=== PATIENT | male | born 1950 | race Caucasian/White ===

== ENCOUNTER 2018-10-19 15:51 | Inpatient (IN) | payer MEDICARE, MEDICAID ==
[~2018-10-19] VITALS: Ht 167.6 cm; Wt 132.6 kg
[~2018-10-19 15:51] MED LIST: CALC667C4 PO
[2018-10-19] MEDS ORDERED: ONDANSETRON HCL 4MG/2ML INJ IV STA (16:19)
[2018-10-19] MEDS ORDERED: DILTIAZEM HCL 30MG TABLET PO ONE (16:30)
[2018-10-19] MEDS ORDERED: ASPIRIN 81MG TABLET PO ONE (16:30)
[2018-10-19] MEDS ORDERED: DILTIAZEM HCL 5MG/ML 5ML VIAL IV ONE (16:30)
[2018-10-19 16:54] LABS: BASOPHILS % 1.4 % (0.0-2.0); EOSINOPHILS % 3.5 % (0.0-5.0); HEMATOCRIT. 37.5 % (42.0-52.0); HEMOGLOBIN. 12.2 g/dL (14.0-18.0); MEAN CORPUSCULAR HEMOGLOBIN 33.9 pg (28.0-32.0); MEAN PLATELET VOLUME 8.8 fl (7.4-10.4); MONOCYTES % 11.2 % (2.0-8.0); NEUTROPHILS % 62.9 % (40.0-76.0); PLATELET 322 x1000/uL (130-400); RED BLOOD CELL COUNT 3.61 mill/uL (4.7-6.1); RED CELL DISTRIBUTION WIDTH 15.2 % (11.6-14.6)
[2018-10-19 17:01] LABS: INR 1.2; PARTIAL THROMBOPLASTIN TIME 29.2 sec (23.4-31.0)
[2018-10-19 17:56] LABS: CHLORIDE 97 mEq/L (98-107)
[2018-10-19 18:00] LABS: ETHANOL BLOOD < 10 mg/dL
[2018-10-19 21:31] VITALS: BP 128/94
[2018-10-19] MEDS ORDERED: LORAZEPAM 1MG TABLET PO PRN (22:15)
[2018-10-19] MEDS ORDERED: NON FORMULARY PATIENT HOME MED XX SCH (22:15)
[2018-10-19] MEDS ORDERED: ONDANSETRON HCL 4MG/2ML INJ IV PRN (22:15)
[2018-10-19] MEDS ORDERED: MORPHINE SULFATE 2 MG/ML CPJ (NOT FOR IM USE) IV PRN (22:15)
[2018-10-19] MEDS: DILTIAZEM HCL 60MG TABLET PO SCH (22:21)
[2018-10-19 22:26] VITALS: BP 128/94
[2018-10-19] MEDS ORDERED: POLYETHYLENE GLYCOL 3350 (17GM) 1 DOSE PACK PO SCH (23:15)
[2018-10-19] MEDS: FAMOTIDINE 20MG TABLET PO SCH (23:25)
[2018-10-19] MEDS ORDERED: MAGNESIUM/ALUMINUM HYDROXIDE/SIMETHICONE 30ML UDC PO NR (23:30)
[2018-10-20 00:37] VITALS: BP 115/83
[2018-10-20] MEDS ORDERED: FOLI0.8T42 MT (03:01)
[2018-10-20] MEDS ORDERED: LORA1TAB PO (03:01)
[2018-10-20] MEDS ORDERED: NAPR-681 MT (03:01)
[2018-10-20] MEDS ORDERED: APIX2.5T MT (03:01)
[2018-10-20] MEDS ORDERED: DILT30TA38 PO (03:01)
[2018-10-20] MEDS ORDERED: SEVE800T8 MT (03:01)
[2018-10-20 03:49] VITALS: BP 118/62
[2018-10-20 05:56] LABS: BASOPHILS % 1.3 % (0.0-2.0); EOSINOPHILS % 4.2 % (0.0-5.0); HEMATOCRIT. 34.9 % (42.0-52.0); HEMOGLOBIN. 11.7 g/dL (14.0-18.0); LYMPHOCYTES % 20.5 % (20.0-50.0); MEAN CORPUSCULAR HEMOGLOBIN 34.6 pg (28.0-32.0); MEAN CORPUSCULAR VOLUME 103.6 fL (80.0-94.0); MEAN PLATELET VOLUME 8.3 fl (7.4-10.4); MONOCYTES % 9.6 % (2.0-8.0); NEUTROPHILS % 64.4 % (40.0-76.0); PLATELET 292 x1000/uL (130-400); RED BLOOD CELL COUNT 3.37 mill/uL (4.7-6.1); RED CELL DISTRIBUTION WIDTH 15.5 % (11.6-14.6)
[2018-10-20] MEDS: DILTIAZEM HCL 60MG TABLET PO SCH ×3 (06:09→18:00)
[2018-10-20 07:20] LABS: CHLORIDE 98 mEq/L (98-107)
[2018-10-20 07:26] LABS: PHOSPHORUS 7.9 mg/dL (2.5-4.9)
[2018-10-20 08:00] VITALS: BP 129/95
[2018-10-20] MEDS ORDERED: METOPROLOL TARTRATE 50MG TABLET PO SCH (09:00)
[2018-10-20] MEDS ORDERED: FOLIC ACID/VITAMIN B COMP W-C TABLET PO SCH (09:00)
[2018-10-20] MEDS ORDERED: METOPROLOL TARTRATE 25MG TABLET PO SCH (09:00)
[2018-10-20] MEDS: FAMOTIDINE 20MG TABLET PO SCH (10:10)
[2018-10-20] MEDS: SEVELAMER CARBONATE 800 MG TABLET PO SCH ×3 (10:11→18:25)
[2018-10-20] MEDS: APIXABAN 2.5 MG TABLET PO SCH ×2 (10:15→18:25)
[2018-10-20 12:00] VITALS: BP 131/85
[2018-10-20] MEDS ORDERED: LACTULOSE 20G/30ML UDC PO NR (14:00)
[2018-10-20] MEDS ORDERED: NA PHOS,M-B/NA PHOS,DI-BA ENEMA 118ML PR NR (14:00)
[2018-10-20 16:23] VITALS: BP 99/59
[2018-10-20 20:32] VITALS: BP 100/62
== END 2018-10-20 20:15 | disposition home or self-care (01) | DRG 291 ==
LOC: ER 15:51 → 8WST 18:31 → EDBEDREQ 18:35 → EDBEDREQTM 18:35 → ENRESERV 19:52
PROVIDERS: ADMIT Internal Medicine; ATTEND Internal Medicine
PROC: 5A1D70Z Performance of Urinary Filtration, Intermittent, Less than 6 Hours Per Day (ICD-10-PCS; principal; 2018-10-20)
DX: I13.2 Hypertensive heart and chronic kidney disease with heart failure and with stage 5 chronic kidney disease, or end stage renal disease (principal); N18.6 End stage renal disease; E44.0 Moderate protein-calorie malnutrition; E87.1 Hypo-osmolality and hyponatremia; Z68.42 Body mass index [BMI] 45.0-49.9, adult; E11.22 Type 2 diabetes mellitus with diabetic chronic kidney disease; K59.09 Other constipation; D64.9 Anemia, unspecified; F32.9 Major depressive disorder, single episode, unspecified; I35.0 Nonrheumatic aortic (valve) stenosis; F41.9 Anxiety disorder, unspecified; E66.01 Morbid (severe) obesity due to excess calories; I50.9 Heart failure, unspecified; E87.8 Other disorders of electrolyte and fluid balance, not elsewhere classified; G89.29 Other chronic pain; I48.2 Chronic atrial fibrillation; M19.90 Unspecified osteoarthritis, unspecified site; Z79.01 Long term (current) use of anticoagulants; Z90.81 Acquired absence of spleen; Z99.2 Dependence on renal dialysis; Z91.15 Patient's noncompliance with renal dialysis; Z79.899 Other long term (current) drug therapy; Z71.3 Dietary counseling and surveillance
CPT/HCPCS: 36415; 71045; 80320; 83605; 83880; 84100; 84484; 93005; 93306; 96374; 96375; 99285; J2405; J3490; G0480

== ENCOUNTER 2018-11-07 09:49 | Inpatient (IN) | payer MEDICARE, MEDICAID ==
[~2018-11-07] VITALS: Ht 165.1 cm; Wt 124.7 kg
[~2018-11-07 09:49] MED LIST changes: +APIX2.5T MT; +DILT30TA38 PO; +FOLI0.8T42 MT; +LORA1TAB PO; +SEVE800T8 MT
[2018-11-07] MEDS ORDERED: MORPHINE SULFATE 4 MG/ML CPJ (NOT FOR IM USE) IV STA (10:32)
[2018-11-07] MEDS ORDERED: SODIUM CHLORIDE 0.9% 1,000 ML IV ONE (10:32)
[2018-11-07] MEDS ORDERED: ONDANSETRON HCL 4MG/2ML INJ IV STA (10:32)
[2018-11-07 11:07] LABS: BASOPHILS % 1.2 % (0.0-2.0); EOSINOPHILS % 3.3 % (0.0-5.0); HEMATOCRIT. 38.4 % (42.0-52.0); HEMOGLOBIN. 12.7 g/dL (14.0-18.0); LYMPHOCYTES % 19.8 % (20.0-50.0); MEAN CORPUSCULAR HEMOGLOBIN 33.7 pg (28.0-32.0); MEAN CORPUSCULAR VOLUME 101.9 fL (80.0-94.0); MEAN PLATELET VOLUME 8.1 fl (7.4-10.4); MONOCYTES % 10.4 % (2.0-8.0); NEUTROPHILS % 65.3 % (40.0-76.0); PLATELET 363 x1000/uL (130-400); RED BLOOD CELL COUNT 3.77 mill/uL (4.7-6.1); RED CELL DISTRIBUTION WIDTH 14.5 % (11.6-14.6)
[2018-11-07 11:15] LABS: CHLORIDE 95 mEq/L (98-107)
[2018-11-07 11:17] LABS: PARTIAL THROMBOPLASTIN TIME 28.9 sec (23.4-31.0); PROTHROMBIN TIME 10.1 sec (9.6-11.0)
[2018-11-07] MEDS ORDERED: ACETAMINOPHEN 650MG/20.3ML UDC GT PRN (14:00)
[2018-11-07] MEDS ORDERED: CLONIDINE 0.1MG TABLET PO PRN (14:00)
[2018-11-07] MEDS ORDERED: ONDANSETRON HCL 4MG/2ML INJ IV PRN (14:00)
[2018-11-07] MEDS ORDERED: DOCUSATE SODIUM 100MG CAPSULE PO PRN (14:00)
[2018-11-07] MEDS ORDERED: HYDROCODONE/ACETAMINOPHEN 10/325MG TABLET PO PRN (14:00)
[2018-11-07] MEDS ORDERED: ASPIRIN 325MG EC TABLET PO ONE (14:00)
[2018-11-07] MEDS ORDERED: DIPHENHYDRAMINE 50MG/ML VIAL IV PRN (14:00)
[2018-11-07] MEDS ORDERED: MAGNESIUM/ALUMINUM HYDROXIDE/SIMETHICONE 30ML UDC PO PRN (14:00)
[2018-11-07] MEDS ORDERED: HYDROCODONE/ACETAMINOPHEN 5/325MG TABLET PO PRN (14:00)
[2018-11-07] MEDS ORDERED: IPRATROPIUM/ALBUTEROL 0.5-3(2.5)MG/3ML NEB INH PRN (14:00)
[2018-11-07] MEDS ORDERED: ACETAMINOPHEN 325MG TABLET PO PRN (14:00)
[2018-11-07] MEDS ORDERED: ACETAMINOPHEN 650MG SUPP PR PRN (14:00)
[2018-11-07] MEDS ORDERED: METO-539 PO (17:41)
[2018-11-07] MEDS ORDERED: FAMO20TA8 PO (17:41)
[2018-11-07] MEDS ORDERED: MIDO10TA PO (17:41)
[2018-11-07 17:42] VITALS: BP 118/81
[2018-11-07 17:45] VITALS: BP 118/81
[2018-11-07 20:00] VITALS: BP 97/67
[2018-11-07] MEDS ORDERED: ENOXAPARIN 40MG/0.4ML SYR SUBCUT SCH (20:00)
[2018-11-07 20:31] LABS: CREATINE KINASE MB FRACTION 1.7 ng/mL (0.5-3.6)
[2018-11-07] MEDS ORDERED: NA PHOS,M-B/NA PHOS,DI-BA ENEMA 118ML PR PRN (21:00)
[2018-11-07] MEDS: SODIUM CHLORIDE 0.9% INJ 3ML FLUSH IVF SCH (21:30)
[2018-11-08] VITALS: BP 98/58
[2018-11-08 00:47] LABS: CREATINE KINASE MB FRACTION 1.4 ng/mL (0.5-3.6)
[2018-11-08 01:43] VITALS: BP 111/64
[2018-11-08 04:00] VITALS: BP 109/60
[2018-11-08] MEDS: SODIUM CHLORIDE 0.9% INJ 3ML FLUSH IVF SCH ×2 (06:00→14:00)
[2018-11-08 08:00] VITALS: BP 120/72
[2018-11-08 08:19] LABS: BASOPHILS % 1.3 % (0.0-2.0); EOSINOPHILS % 2.9 % (0.0-5.0); LYMPHOCYTES % 22.9 % (20.0-50.0); MEAN CORPUSCULAR HEMOGLOBIN 34.5 pg (28.0-32.0); MEAN CORPUSCULAR VOLUME 103.4 fL (80.0-94.0); MEAN PLATELET VOLUME 8.5 fl (7.4-10.4); MONOCYTES % 13.8 % (2.0-8.0); NEUTROPHILS % 59.1 % (40.0-76.0); PLATELET 377 x1000/uL (130-400); RED BLOOD CELL COUNT 3.77 mill/uL (4.7-6.1); RED CELL DISTRIBUTION WIDTH 14.9 % (11.6-14.6)
[2018-11-08 08:51] LABS: CHLORIDE 105 mEq/L (98-107)
[2018-11-08 09:00] LABS: PHOSPHORUS 4.8 mg/dL (2.5-4.9)
[2018-11-08] MEDS ORDERED: MAGNESIUM CITRATE 300ML SOLUTION PO NR (09:45)
[2018-11-08 12:00] VITALS: BP 124/58
[2018-11-08] MEDS ORDERED: LACTULOSE 20G/30ML UDC PO SCH (13:00)
[2018-11-08] MEDS: METOCLOPRAMIDE HCL 10MG/2ML VIAL IV SCH ×2 (13:22→18:00)
[2018-11-08] MEDS: SEVELAMER CARBONATE 800 MG TABLET PO SCH ×2 (13:23→18:10)
[2018-11-08 16:00] VITALS: BP 105/59
== END 2018-11-08 18:40 | disposition home or self-care (01) | DRG 308 ==
LOC: ER 10:08 → EDBEDREQ 14:15 → ENRESERV 14:50 → 7WST 17:51
PROVIDERS: ADMIT Family Medicine; ATTEND Family Medicine
PROC: 5A1D70Z Performance of Urinary Filtration, Intermittent, Less than 6 Hours Per Day (ICD-10-PCS; principal; 2018-11-07)
DX: I48.91 Unspecified atrial fibrillation (principal); N18.6 End stage renal disease; I13.2 Hypertensive heart and chronic kidney disease with heart failure and with stage 5 chronic kidney disease, or end stage renal disease; Z68.42 Body mass index [BMI] 45.0-49.9, adult; K59.00 Constipation, unspecified; R10.9 Unspecified abdominal pain; F41.9 Anxiety disorder, unspecified; F32.9 Major depressive disorder, single episode, unspecified; E66.9 Obesity, unspecified; I50.9 Heart failure, unspecified; M19.90 Unspecified osteoarthritis, unspecified site; N40.0 Benign prostatic hyperplasia without lower urinary tract symptoms; E83.39 Other disorders of phosphorus metabolism; D64.9 Anemia, unspecified; N27.1 Small kidney, bilateral; K59.09 Other constipation; E11.22 Type 2 diabetes mellitus with diabetic chronic kidney disease; G89.29 Other chronic pain; K74.60 Unspecified cirrhosis of liver; K57.30 Diverticulosis of large intestine without perforation or abscess without bleeding; K80.20 Calculus of gallbladder without cholecystitis without obstruction; Z90.81 Acquired absence of spleen; Z99.2 Dependence on renal dialysis
CPT/HCPCS: 36415; 71045; 74176; 82270; 82550; 82553; 83735; 83880; 84100; 84484; 93005; 96374; 99285; J1650; J2270; J2405; J2765; J7030

== ENCOUNTER 2019-01-07 11:59 | Emergency (ER) | payer MEDICARE, MEDICAID ==
[~2019-01-07] VITALS: Ht 170.2 cm; Wt 113.0 kg
[~2019-01-07 11:59] MED LIST changes: +FAMO20TA8 PO; +METO-539 PO; +MIDO10TA PO
[2019-01-07] MEDS ORDERED: HYDROCODONE/ACETAMINOPHEN 5/325MG TABLET PO STA (13:04)
[2019-01-07 14:47] LABS: BASOPHILS % 0.6 % (0.0-2.0); EOSINOPHILS % 2.9 % (0.0-5.0); HEMATOCRIT. 45.8 % (42.0-52.0); LYMPHOCYTES % 19.2 % (20.0-50.0); MEAN CORPUSCULAR VOLUME 103.7 fL (80.0-94.0); MEAN PLATELET VOLUME 8.5 fl (7.4-10.4); MONOCYTES % 10.2 % (2.0-8.0); NEUTROPHILS % 67.1 % (40.0-76.0); PLATELET 297 x1000/uL (130-400); RED BLOOD CELL COUNT 4.41 mill/uL (4.7-6.1)
[2019-01-07 14:48] LABS: CHLORIDE 95 mEq/L (98-107)
[2019-01-07 18:29] VITALS: BP 118/75
[2019-01-07] MEDS ORDERED: HYDROCODONE/ACETAMINOPHEN 5/325MG TABLET PO ONE (18:30)
== END 2019-01-07 19:00 | disposition home or self-care (01) ==
LOC: ER 11:59
DX: R51 Headache (principal); N18.6 End stage renal disease; R03.0 Elevated blood-pressure reading, without diagnosis of hypertension; H40.9 Unspecified glaucoma; Z99.2 Dependence on renal dialysis; H57.10 Ocular pain, unspecified eye
CPT/HCPCS: 36415; 99284

== ENCOUNTER 2019-04-18 03:12 | Inpatient (IN) | payer MEDICARE, MEDICAID ==
[~2019-04-18] VITALS: Ht 170.2 cm; Wt 121.6 kg
[2019-04-18 04:11] LABS: BASOPHILS % 0.4 % (0.0-2.0); EOSINOPHILS % 3.6 % (0.0-5.0); HEMATOCRIT. 37.2 % (42.0-52.0); HEMOGLOBIN. 12.5 g/dL (14.0-18.0); LYMPHOCYTES % 28.7 % (20.0-50.0); MEAN CORPUSCULAR HEMOGLOBIN 35.8 pg (28.0-32.0); MEAN CORPUSCULAR VOLUME 106.6 fL (80.0-94.0); MEAN PLATELET VOLUME 8.4 fl (7.4-10.4); NEUTROPHILS % 54.3 % (40.0-76.0); PLATELET 243 x1000/uL (130-400); RED BLOOD CELL COUNT 3.49 mill/uL (4.7-6.1); RED CELL DISTRIBUTION WIDTH 15.3 % (11.6-14.6)
[2019-04-18 04:16] LABS: PARTIAL THROMBOPLASTIN TIME 30.6 sec (23.4-31.0); PROTHROMBIN TIME 10.5 sec (9.6-11.0)
[2019-04-18 04:25] LABS: CHLORIDE 102 mEq/L (98-107)
[2019-04-18] MEDS ORDERED: MORPHINE SULFATE 2 MG/ML CPJ (NOT FOR IM USE) IV ONE (06:30)
[2019-04-18 06:48] LABS: HEMOGLOBIN 12.2 g/dL (14.0-18.0); MEAN CORPUSCULAR VOLUME 105.8 fL (80.0-94.0); PLATELET 245 x1000/uL (130-400)
[2019-04-18 07:14] LABS: PARTIAL THROMBOPLASTIN TIME 30.8 sec (23.4-31.0); PROTHROMBIN TIME 10.7 sec (9.6-11.0)
[2019-04-18] MEDS ORDERED: HUMAN PROTHROMBIN COMPLX (PCC) 500 UNITS VIAL IV ONE (07:15)
[2019-04-18] MEDS ORDERED: HUMAN PROTHROMBIN COMPLX IV ONE (07:15)
[2019-04-18] MEDS ORDERED: ONDANSETRON HCL 4MG/2ML INJ IV PRN (08:30)
[2019-04-18] MEDS: PANTOPRAZOLE SODIUM 40 MG/VIAL IV SCH ×3 (09:00→23:24)
[2019-04-18] MEDS ORDERED: MIDODRINE HCL 5MG TABLET PO SCH (12:00)
[2019-04-18] MEDS: METOPROLOL TARTRATE 50MG TABLET PO SCH (21:00)
[2019-04-18] MEDS ORDERED: DILTIAZEM HCL 60MG TABLET PO NR (22:00)
[2019-04-18 22:30] VITALS: BP 121/75
[2019-04-18] MEDS: POLYETHYLENE GLYCOL 3350 (17GM) 1 DOSE PACK PO SCH (22:30)
[2019-04-19 04:00] VITALS: BP 149/93
[2019-04-19 08:05] VITALS: BP 136/74
[2019-04-19] MEDS: FOLIC ACID/VITAMIN B COMP W-C TABLET PO SCH (09:00)
[2019-04-19] MEDS ORDERED: DILTIAZEM HCL 120MG CAPSULE CD 24HR PO SCH (09:00)
[2019-04-19] MEDS ORDERED: DIATR MEGLU/DIATRIZOATE SOLN 30ML PO SCH ×2 (09:30→13:45)
[2019-04-19] MEDS: METOPROLOL TARTRATE 50MG TABLET PO SCH ×2 (09:57→21:00)
[2019-04-19] MEDS ORDERED: INFLUENZA VIRUS VACCINE(AFLURIA) 0.5ML SYR IM ONE (10:00)
[2019-04-19] MEDS: POLYETHYLENE GLYCOL 3350 (17GM) 1 DOSE PACK PO SCH ×2 (10:00→17:00)
[2019-04-19 10:55] LABS: BASOPHILS % 2.2 % (0.0-2.0); EOSINOPHILS % 2.4 % (0.0-5.0); HEMATOCRIT. 30.1 % (42.0-52.0); HEMOGLOBIN. 10.3 g/dL (14.0-18.0); LYMPHOCYTES % 21.8 % (20.0-50.0); MEAN CORPUSCULAR HEMOGLOBIN 36.3 pg (28.0-32.0); MEAN CORPUSCULAR VOLUME 106.5 fL (80.0-94.0); MEAN PLATELET VOLUME 8.3 fl (7.4-10.4); MONOCYTES % 14.4 % (2.0-8.0); NEUTROPHILS % 59.2 % (40.0-76.0); PLATELET 222 x1000/uL (130-400); RED BLOOD CELL COUNT 2.83 mill/uL (4.7-6.1); RED CELL DISTRIBUTION WIDTH 15.3 % (11.6-14.6)
[2019-04-19 11:58] VITALS: BP 153/81
[2019-04-19] MEDS ORDERED: SORBITOL 70% SOLN 30ML PO SCH ×2 (16:00→20:00)
[2019-04-19 16:23] VITALS: BP 145/82
[2019-04-19] MEDS: ACETAMINOPHEN 325MG TABLET PO PRN (17:23)
[2019-04-19] MEDS: DILTIAZEM HCL 90MG TABLET PO SCH (18:00)
[2019-04-19] MEDS ORDERED: LORAZEPAM 2MG/ML CPJ IV PRN (19:45)
[2019-04-19 20:00] VITALS: BP 120/75
[2019-04-19] MEDS: PANTOPRAZOLE SODIUM 40 MG/VIAL IV SCH (21:00)
[2019-04-20] VITALS (57 sets, daily range): BP systolic 92–145; BP diastolic 38–99
[2019-04-20 00:04] LABS: TOTAL IRON BINDING CAPACITY 215 ug/dL (250-450)
[2019-04-20] MEDS: DILTIAZEM HCL 90MG TABLET PO SCH ×4 (06:00→19:10)
[2019-04-20] MEDS: PANTOPRAZOLE SODIUM 40 MG/VIAL IV SCH ×2 (09:00→21:15)
[2019-04-20] MEDS: POLYETHYLENE GLYCOL 3350 (17GM) 1 DOSE PACK PO SCH ×2 (09:00→16:55)
[2019-04-20] MEDS: FOLIC ACID/VITAMIN B COMP W-C TABLET PO SCH (09:00)
[2019-04-20] MEDS: METOPROLOL TARTRATE 50MG TABLET PO SCH ×2 (09:00→21:00)
[2019-04-20 09:06] LABS: BASOPHILS % 1.4 % (0.0-2.0); EOSINOPHILS % 2.6 % (0.0-5.0); HEMATOCRIT. 26.7 % (42.0-52.0); HEMOGLOBIN. 9.1 g/dL (14.0-18.0); LYMPHOCYTES % 32.9 % (20.0-50.0); MEAN CORPUSCULAR HEMOGLOBIN 36.5 pg (28.0-32.0); MEAN CORPUSCULAR VOLUME 107.5 fL (80.0-94.0); MEAN PLATELET VOLUME 8.4 fl (7.4-10.4); MONOCYTES % 12.4 % (2.0-8.0); NEUTROPHILS % 50.7 % (40.0-76.0); PLATELET 211 x1000/uL (130-400); RED BLOOD CELL COUNT 2.48 mill/uL (4.7-6.1); RED CELL DISTRIBUTION WIDTH 15.2 % (11.6-14.6)
[2019-04-20 09:23] LABS: PARTIAL THROMBOPLASTIN TIME 25.8 sec (23.4-31.0); PROTHROMBIN TIME 10.7 sec (9.6-11.0)
[2019-04-20 09:37] LABS: PHOSPHORUS 5.8 mg/dL (2.5-4.9)
[2019-04-20] MEDS ORDERED: LIDOCAINE HCL 1% 20ML VIAL (Pyxis) INJ ONE ×2 (10:36→11:37)
[2019-04-20 10:45] LABS: FOLIC ACID (FOLATE) SERUM > 20.00 ng/mL (>5.38); VITAMIN B12 SERUM > 2000.0 pg/mL (211-911)
[2019-04-20] MEDS ORDERED: PHENYLEPHRINE 40 MG in DEXT 5% WATER 496 ML IV PRN (11:00)
[2019-04-20] MEDS ORDERED: DIATR MEGLU/DIATRIZOATE SOLN 30ML PO SCH (12:30)
[2019-04-20 13:05] LABS: CARCINO EMBRYONIC ANTIGEN 2.9 ng/ml; FERRITIN 713 ng/mL (22-322)
[2019-04-20 13:16] LABS: HEPATITIS B SURFACE ANTIGEN NEGATIVE
[2019-04-20 13:43] LABS: HEPATITIS A AB IGM NEGATIVE (NEGATIVE)
[2019-04-20] MEDS ORDERED: IOHEXOL-300 100 ML BOTTLE ONE (22:30)
[2019-04-20 22:46] LABS: HEMOGLOBIN 8.6 g/dL (14.0-18.0); MEAN CORPUSCULAR HEMOGLOBIN 34.5 pg (28.0-32.0); PLATELET 162 x1000/uL (130-400); RED BLOOD CELL COUNT 2.51 mill/uL (4.7-6.1)
[2019-04-20 22:50] LABS: HEMATOCRIT 25.2 % (42.0-52.0); MEAN CORPUSCULAR VOLUME 100.6 fL (80.0-94.0)
[2019-04-21] VITALS (79 sets, daily range): BP systolic 84–146; BP diastolic 40–111
[2019-04-21] MEDS: DILTIAZEM HCL 90MG TABLET PO SCH ×5 (00:52→23:55)
[2019-04-21 02:32] LABS: HEMATOCRIT 25.6 % (42.0-52.0); HEMOGLOBIN 8.8 g/dL (14.0-18.0); MEAN CORPUSCULAR HEMOGLOBIN 34.4 pg (28.0-32.0); MEAN CORPUSCULAR VOLUME 100.2 fL (80.0-94.0); PLATELET 171 x1000/uL (130-400); RED BLOOD CELL COUNT 2.56 mill/uL (4.7-6.1)
[2019-04-21 07:07] LABS: BASOPHILS % 1.1 % (0.0-2.0); EOSINOPHILS % 2.3 % (0.0-5.0); HEMOGLOBIN. 8.7 g/dL (14.0-18.0); MEAN CORPUSCULAR HEMOGLOBIN 35.2 pg (28.0-32.0); MEAN CORPUSCULAR VOLUME 100.9 fL (80.0-94.0); MEAN PLATELET VOLUME 8.4 fl (7.4-10.4); MONOCYTES % 12.8 % (2.0-8.0); NEUTROPHILS % 60.8 % (40.0-76.0); PLATELET 173 x1000/uL (130-400); RED BLOOD CELL COUNT 2.48 mill/uL (4.7-6.1); RED CELL DISTRIBUTION WIDTH 18.9 % (11.6-14.6)
[2019-04-21] MEDS: PANTOPRAZOLE SODIUM 40 MG/VIAL IV SCH ×2 (08:20→23:10)
[2019-04-21] MEDS: FOLIC ACID/VITAMIN B COMP W-C TABLET PO SCH (08:20)
[2019-04-21] MEDS: POLYETHYLENE GLYCOL 3350 (17GM) 1 DOSE PACK PO SCH ×2 (08:20→16:59)
[2019-04-21] MEDS: METOPROLOL TARTRATE 50MG TABLET PO SCH ×2 (09:00→21:00)
[2019-04-21 11:56] LABS: HEMATOCRIT 25.6 % (42.0-52.0); HEMOGLOBIN 8.7 g/dL (14.0-18.0); MEAN CORPUSCULAR HEMOGLOBIN 34.5 pg (28.0-32.0); MEAN CORPUSCULAR VOLUME 101.3 fL (80.0-94.0); PLATELET 171 x1000/uL (130-400); RED BLOOD CELL COUNT 2.52 mill/uL (4.7-6.1); RED CELL DISTRIBUTION WIDTH 18.9 % (11.6-14.6)
[2019-04-21 16:24] LABS: HEMATOCRIT 25.3 % (42.0-52.0); HEMOGLOBIN 8.6 g/dL (14.0-18.0); MEAN CORPUSCULAR HEMOGLOBIN 34.6 pg (28.0-32.0); MEAN CORPUSCULAR VOLUME 101.7 fL (80.0-94.0); PLATELET 174 x1000/uL (130-400); RED BLOOD CELL COUNT 2.49 mill/uL (4.7-6.1); RED CELL DISTRIBUTION WIDTH 18.9 % (11.6-14.6)
[2019-04-21] MEDS ORDERED: SORBITOL 70% SOLN 30ML PO NR (21:28)
[2019-04-21] MEDS: LORAZEPAM 1MG TABLET PO PRN (23:07)
[2019-04-21] MEDS: METOCLOPRAMIDE HCL 10MG/2ML VIAL IV SCH (23:49)
[2019-04-22] VITALS (30 sets, daily range): BP systolic 93–149; BP diastolic 37–96
[2019-04-22] MEDS ORDERED: SORBITOL 70% SOLN 30ML PO NR (02:00)
[2019-04-22 05:20] LABS: HEMOGLOBIN. 8.5 g/dL (14.0-18.0); LYMPHOCYTES % 17.5 % (20.0-50.0); MEAN CORPUSCULAR HEMOGLOBIN 34.6 pg (28.0-32.0); MEAN CORPUSCULAR VOLUME 101.8 fL (80.0-94.0); MEAN PLATELET VOLUME 8.3 fl (7.4-10.4); MONOCYTES % 11.6 % (2.0-8.0); NEUTROPHILS % 65.9 % (40.0-76.0); PLATELET 192 x1000/uL (130-400); RED BLOOD CELL COUNT 2.46 mill/uL (4.7-6.1); RED CELL DISTRIBUTION WIDTH 18.8 % (11.6-14.6)
[2019-04-22] MEDS: DILTIAZEM HCL 90MG TABLET PO SCH ×3 (07:18→18:35)
[2019-04-22] MEDS: METOCLOPRAMIDE HCL 10MG/2ML VIAL IV SCH ×4 (07:18→18:35)
[2019-04-22] MEDS: POLYETHYLENE GLYCOL 3350 (17GM) 1 DOSE PACK PO SCH ×2 (09:00→17:00)
[2019-04-22] MEDS ORDERED: SORBITOL 70% SOLN 30ML PO SCH (09:00)
[2019-04-22] MEDS: FOLIC ACID/VITAMIN B COMP W-C TABLET PO SCH (09:00)
[2019-04-22] MEDS: METOPROLOL TARTRATE 50MG TABLET PO SCH ×2 (10:03→20:32)
[2019-04-22] MEDS: PANTOPRAZOLE SODIUM 40 MG/VIAL IV SCH ×2 (10:03→20:29)
[2019-04-22] MEDS ORDERED: BACITRACIN 15GM TUBE TOP ONE (12:22)
[2019-04-22] MEDS ORDERED: FENTANYL CITRATE/PF 50MCG/ML 2ML VIAL ONE (14:57)
[2019-04-22] MEDS ORDERED: MIDAZOLAM HCL 5 MG/5 ML VIAL ONE (14:57)
[2019-04-22] MEDS ORDERED: MIDAZOLAM HCL 5 MG/5 ML VIAL IV PRN (15:16)
[2019-04-22] MEDS ORDERED: FENTANYL CITRATE/PF 50MCG/ML 2ML VIAL IV PRN (15:25)
[2019-04-22] MEDS: LORAZEPAM 1MG TABLET PO PRN (23:58)
[2019-04-23] VITALS (7 sets, daily range): BP systolic 76–149; BP diastolic 45–78
[2019-04-23] MEDS: DILTIAZEM HCL 90MG TABLET PO SCH ×4 (00:02→18:00)
[2019-04-23] MEDS: METOCLOPRAMIDE HCL 10MG/2ML VIAL IV SCH ×3 (00:02→12:50)
[2019-04-23] MEDS: ACETAMINOPHEN 325MG TABLET PO PRN (01:47)
[2019-04-23] MEDS: METOPROLOL TARTRATE 50MG TABLET PO SCH (09:00)
[2019-04-23 09:29] LABS: BASOPHILS % 0.8 % (0.0-2.0); EOSINOPHILS % 4.6 % (0.0-5.0); HEMOGLOBIN. 8.3 g/dL (14.0-18.0); MEAN CORPUSCULAR HEMOGLOBIN 34.1 pg (28.0-32.0); MEAN PLATELET VOLUME 8.4 fl (7.4-10.4); MONOCYTES % 11.8 % (2.0-8.0); NEUTROPHILS % 64.8 % (40.0-76.0); PLATELET 196 x1000/uL (130-400); RED BLOOD CELL COUNT 2.43 mill/uL (4.7-6.1); RED CELL DISTRIBUTION WIDTH 18.7 % (11.6-14.6)
[2019-04-23 09:36] LABS: CHLORIDE 109 mEq/L (98-107)
[2019-04-23 09:47] LABS: PHOSPHORUS 6.9 mg/dL (2.5-4.9)
[2019-04-23] MEDS: POLYETHYLENE GLYCOL 3350 (17GM) 1 DOSE PACK PO SCH ×2 (10:12→10:19)
[2019-04-23] MEDS: FOLIC ACID/VITAMIN B COMP W-C TABLET PO SCH (10:12)
[2019-04-23] MEDS: PANTOPRAZOLE SODIUM 40 MG/VIAL IV SCH (10:12)
[2019-04-23] MEDS: SEVELAMER CARBONATE 800 MG TABLET PO SCH ×2 (12:50→18:43)
[2019-04-23] MEDS ORDERED: METOCLOPRAMIDE HCL 10MG/2ML VIAL IV SCH (18:00)
== END 2019-04-23 20:06 | disposition home or self-care (01) | DRG 377 ==
LOC: ER 05:21 → 6WST 07:58 → EDBEDREQ 08:00 → EDBEDREQSVC 08:00 → CANRESERV 20:03 → ENRESERV 20:03 → MICUSO 04-20 10:57 → 6WST 04-22 23:00
PROVIDERS: ADMIT Internal Medicine; ATTEND Internal Medicine
PROC: 5A1D70Z Performance of Urinary Filtration, Intermittent, Less than 6 Hours Per Day (ICD-10-PCS; 2019-04-18)
PROC: 30233N1 Transfusion of Nonautologous Red Blood Cells into Peripheral Vein, Percutaneous Approach (ICD-10-PCS; principal; 2019-04-20)
PROC: 05HY33Z Insertion of Infusion Device into Upper Vein, Percutaneous Approach (ICD-10-PCS; 2019-04-20)
PROC: B54MZZA Ultrasonography of Right Upper Extremity Veins, Guidance (ICD-10-PCS; 2019-04-20)
PROC: 5A1D70Z Performance of Urinary Filtration, Intermittent, Less than 6 Hours Per Day (ICD-10-PCS; 2019-04-20)
PROC: 0DBK8ZZ Excision of Ascending Colon, Via Natural or Artificial Opening Endoscopic (ICD-10-PCS; 2019-04-22)
PROC: 5A1D70Z Performance of Urinary Filtration, Intermittent, Less than 6 Hours Per Day (ICD-10-PCS; 2019-04-23)
DX: K57.31 Diverticulosis of large intestine without perforation or abscess with bleeding (principal); N18.6 End stage renal disease; R57.1 Hypovolemic shock; D62 Acute posthemorrhagic anemia; E44.1 Mild protein-calorie malnutrition; I13.2 Hypertensive heart and chronic kidney disease with heart failure and with stage 5 chronic kidney disease, or end stage renal disease; I48.20 Chronic atrial fibrillation, unspecified; Z68.42 Body mass index [BMI] 45.0-49.9, adult; N25.81 Secondary hyperparathyroidism of renal origin; E11.22 Type 2 diabetes mellitus with diabetic chronic kidney disease; E66.01 Morbid (severe) obesity due to excess calories; E87.5 Hyperkalemia; E83.39 Other disorders of phosphorus metabolism; I50.9 Heart failure, unspecified; K21.9 Gastro-esophageal reflux disease without esophagitis; D63.1 Anemia in chronic kidney disease; K44.9 Diaphragmatic hernia without obstruction or gangrene; N40.0 Benign prostatic hyperplasia without lower urinary tract symptoms; K59.09 Other constipation; G89.29 Other chronic pain; K63.5 Polyp of colon; K74.60 Unspecified cirrhosis of liver; F41.9 Anxiety disorder, unspecified; E11.42 Type 2 diabetes mellitus with diabetic polyneuropathy; M19.90 Unspecified osteoarthritis, unspecified site; Z60.2 Problems related to living alone; I35.0 Nonrheumatic aortic (valve) stenosis; Z71.89 Other specified counseling; Z90.81 Acquired absence of spleen; Z79.01 Long term (current) use of anticoagulants; Z99.2 Dependence on renal dialysis; Z82.49 Family history of ischemic heart disease and other diseases of the circulatory system; Z83.3 Family history of diabetes mellitus
CPT/HCPCS: 36415; 71045; 74177; 76937; 78278; 80048; 80053; 80307; 82105; 82378; 82607; 82728; 82746; 83540; 83550; 83735; 83880; 84100; 84484; 85018; 85025; 85027; 86705; 86709; 86803; 86850; 86900; 86920; 87340; 88305; 93005; 93306; 93970; 99285; A9560; C1725; C9113; C9132; J2060; J2250; J2270; J2765; J3010; J3490; J7040; P9016; Q9963; Q9967

== ENCOUNTER 2019-06-08 04:02 | Emergency (ER) | payer MEDICARE, MEDICAID ==
[~2019-06-08] VITALS: Ht 170.2 cm; Wt 132.0 kg
[~2019-06-08 04:02] MED LIST changes: -APIX2.5T MT; -CALC667C4 PO
[2019-06-08] MEDS ORDERED: KETOROLAC 30MG/ML VIAL IV STA (06:34)
[2019-06-08 06:48] LABS: CHLORIDE 95 mEq/L (98-107)
[2019-06-08 06:57] LABS: BASOPHILS % 0.8 % (0.0-2.0); EOSINOPHILS % 4.4 % (0.0-5.0); HEMATOCRIT. 40.6 % (42.0-52.0); HEMOGLOBIN. 13.8 g/dL (14.0-18.0); LYMPHOCYTES % 25.9 % (20.0-50.0); MEAN CORPUSCULAR VOLUME 105.9 fL (80.0-94.0); MEAN PLATELET VOLUME 8.4 fl (7.4-10.4); MONOCYTES % 13.3 % (2.0-8.0); NEUTROPHILS % 55.6 % (40.0-76.0); PLATELET 290 x1000/uL (130-400); RED BLOOD CELL COUNT 3.83 mill/uL (4.7-6.1); RED CELL DISTRIBUTION WIDTH 15.9 % (11.6-14.6)
[2019-06-08 08:37] VITALS: BP 128/85
== END 2019-06-08 08:35 | disposition home or self-care (01) ==
LOC: ER 04:02
DX: M79.18 Myalgia, other site (principal); R07.89 Other chest pain; M79.605 Pain in left leg; M79.604 Pain in right leg; R10.30 Lower abdominal pain, unspecified; N18.6 End stage renal disease; Z99.2 Dependence on renal dialysis; I48.91 Unspecified atrial fibrillation; Z79.899 Other long term (current) drug therapy
CPT/HCPCS: 36415; 71045; 80053; 85025; 93005; 96374; 99285; J1885

== ENCOUNTER 2019-07-27 20:36 | Inpatient (IN) | payer MEDICARE, MEDICAID ==
[~2019-07-27] VITALS: Ht 167.6 cm; Wt 121.6 kg
[2019-07-27] MEDS ORDERED: SODIUM CHLORIDE 0.9% 1000ML BAG (SEPSIS BOLUS) IV ONE (21:00)
[2019-07-27] MEDS ORDERED: ATROPINE SULFATE 1MG/10ML SYR IV NR (21:30)
[2019-07-27] MEDS ORDERED: GLUCAGON,HUMAN RECOMBINANT 1MG/VIAL IV SCH (21:30)
[2019-07-27] MEDS ORDERED: GLUCAGON,HUMAN RECOMBINANT 1MG/VIAL IV ONE (21:30)
[2019-07-27 21:35] LABS: BASOPHILS % 1.1 % (0.0-2.0); EOSINOPHILS % 3.8 % (0.0-5.0); HEMOGLOBIN. 13.3 g/dL (14.0-18.0); MEAN CORPUSCULAR HEMOGLOBIN 34.7 pg (28.0-32.0); MEAN CORPUSCULAR VOLUME 104.7 fL (80.0-94.0); MEAN PLATELET VOLUME 8.3 fl (7.4-10.4); MONOCYTES % 11.7 % (2.0-8.0); NEUTROPHILS % 59.4 % (40.0-76.0); PLATELET 258 x1000/uL (130-400); RED BLOOD CELL COUNT 3.82 mill/uL (4.7-6.1); RED CELL DISTRIBUTION WIDTH 15.2 % (11.6-14.6)
[2019-07-27 21:38] LABS: PROTHROMBIN TIME 10.6 sec (9.6-11.0)
[2019-07-27 21:39] LABS: CHLORIDE 99 mEq/L (98-107)
[2019-07-27] MEDS ORDERED: GLUCAGON,HUMAN RECOMBINANT 1MG/VIAL IV NR ×2 (22:00→22:30)
[2019-07-27] MEDS ORDERED: DEXT 5% IV NR (22:15)
[2019-07-27] MEDS ORDERED: CALCIUM CHLORIDE 1GM/10ML SYR IV ONE (22:15)
[2019-07-27] MEDS ORDERED: GLUCAGON HUMAN RECOMBINANT IV NR (22:15)
[2019-07-27] MEDS ORDERED: SODIUM BICARBONATE 8.4% 1 MEQ/ML 50ML SYR IV ONE (22:15)
[2019-07-27] MEDS ORDERED: INSULIN REGULAR (HUMULIN R) 300UNITS/3ML IV ONE (22:15)
[2019-07-27] MEDS ORDERED: WATER IV NR (22:15)
[2019-07-27] MEDS ORDERED: DEXTROSE 50% WATER 50ML SYRINGE IV ONE (22:15)
[2019-07-28] MEDS ORDERED: DOPAMINE 400MG/250ML PREMIX 250 ML IV ONE (00:15)
[2019-07-28] MEDS ORDERED: HYDROCODONE/ACETAMINOPHEN 5/325MG TABLET PO PRN (11:45)
[2019-07-28] MEDS ORDERED: DIPHENHYDRAMINE 50MG/ML VIAL IV PRN (11:45)
[2019-07-28] MEDS ORDERED: MAGNESIUM/ALUMINUM HYDROXIDE/SIMETHICONE 30ML UDC PO PRN (11:45)
[2019-07-28] MEDS ORDERED: ONDANSETRON HCL 4MG/2ML INJ IV PRN (11:45)
[2019-07-28] MEDS ORDERED: GUAIFENESIN 200MG/10ML SUGAR FREE UDC PO PRN (11:45)
[2019-07-28] MEDS ORDERED: ACETAMINOPHEN 325MG TABLET PO PRN (11:45)
[2019-07-28] MEDS ORDERED: DOCUSATE SODIUM 100MG CAPSULE PO PRN (11:45)
[2019-07-28 16:00] VITALS: BP 144/92
[2019-07-28 17:33] VITALS: BP 144/92
[2019-07-28 18:00] VITALS: BP 130/84
[2019-07-28] MEDS: POLYETHYLENE GLYCOL 3350 (17GM) 1 DOSE PACK PO SCH (18:53)
[2019-07-28] MEDS: SEVELAMER CARBONATE 800 MG TABLET PO SCH (18:53)
[2019-07-28 20:51] VITALS: BP 139/73
[2019-07-29 00:10] VITALS: BP 125/76
[2019-07-29 04:00] VITALS: BP 133/83
[2019-07-29 06:40] LABS: BASOPHILS % 1.1 % (0.0-2.0); HEMOGLOBIN. 12.8 g/dL (14.0-18.0); LYMPHOCYTES % 16.8 % (20.0-50.0); MEAN CORPUSCULAR HEMOGLOBIN 34.9 pg (28.0-32.0); MEAN PLATELET VOLUME 7.8 fl (7.4-10.4); MONOCYTES % 14.9 % (2.0-8.0); NEUTROPHILS % 61.2 % (40.0-76.0); PLATELET 237 x1000/uL (130-400); RED BLOOD CELL COUNT 3.66 mill/uL (4.7-6.1); RED CELL DISTRIBUTION WIDTH 15.2 % (11.6-14.6)
[2019-07-29 06:51] LABS: CHLORIDE 103 mEq/L (98-107)
[2019-07-29 07:09] LABS: PHOSPHORUS 4.3 mg/dL (2.5-4.9)
[2019-07-29 08:25] VITALS: BP 136/76
[2019-07-29] MEDS: POLYETHYLENE GLYCOL 3350 (17GM) 1 DOSE PACK PO SCH (08:40)
[2019-07-29] MEDS: SEVELAMER CARBONATE 800 MG TABLET PO SCH (08:40)
[2019-07-29] MEDS ORDERED: FOLIC ACID/VITAMIN B COMP W-C TABLET PO SCH (09:00)
[2019-07-29 12:30] VITALS: BP 146/88
[2019-07-29 13:25] VITALS: BP 146/88
== END 2019-07-29 14:34 | disposition home or self-care (01) | DRG 917 ==
LOC: ER 20:36 → UNDOADMIN 07-28 00:10 → 6WST 07-28 00:10 → EDBEDREQDT 07-28 00:14 → EDBEDREQSVC 07-28 00:14 → EDBEDREQTM 07-28 00:14 → EDBEDREQ 07-28 00:14 → ENRESERV 07-28 07:28 → CANRESERV 07-28 07:28 → EDBEDREQSVC 07-28 11:26 → ENRESERV 07-28 15:22
PROVIDERS: ADMIT Hospitalist; ATTEND Hospitalist
PROC: 5A1D70Z Performance of Urinary Filtration, Intermittent, Less than 6 Hours Per Day (ICD-10-PCS; principal; 2019-07-28)
DX: T44.7X1A Poisoning by beta-adrenoreceptor antagonists, accidental (unintentional), initial encounter (principal); N18.6 End stage renal disease; I13.2 Hypertensive heart and chronic kidney disease with heart failure and with stage 5 chronic kidney disease, or end stage renal disease; Y92.89 Other specified places as the place of occurrence of the external cause; D63.1 Anemia in chronic kidney disease; E11.22 Type 2 diabetes mellitus with diabetic chronic kidney disease; E87.5 Hyperkalemia; I48.91 Unspecified atrial fibrillation; I50.9 Heart failure, unspecified; K59.09 Other constipation; K74.60 Unspecified cirrhosis of liver; E21.3 Hyperparathyroidism, unspecified; F32.9 Major depressive disorder, single episode, unspecified; K21.9 Gastro-esophageal reflux disease without esophagitis; K57.90 Diverticulosis of intestine, part unspecified, without perforation or abscess without bleeding; L29.9 Pruritus, unspecified; M19.90 Unspecified osteoarthritis, unspecified site; F41.9 Anxiety disorder, unspecified; I95.9 Hypotension, unspecified; E11.42 Type 2 diabetes mellitus with diabetic polyneuropathy; M71.22 Synovial cyst of popliteal space [Baker], left knee; Z79.899 Other long term (current) drug therapy; Z82.49 Family history of ischemic heart disease and other diseases of the circulatory system; Z83.3 Family history of diabetes mellitus; Z90.81 Acquired absence of spleen; Z99.2 Dependence on renal dialysis; Z87.01 Personal history of pneumonia (recurrent)
CPT/HCPCS: 36415; 71045; 80048; 80053; 83605; 83880; 84100; 84145; 84484; 85025; 93005; 93970; 99291; J0461; J1610; J1815; J3490; J7030; J7060

== ENCOUNTER 2020-11-20 03:57 | Inpatient (IN) | payer MEDICARE, MEDICAID ==
[~2020-11-20] VITALS: Ht 172.7 cm; Wt 115.2 kg
[2020-11-20] MEDS ORDERED: NOREPINEPHRINE 8MG/250ML PMX 250 ML IV STA (05:42)
[2020-11-20 05:52] LABS: BASOPHILS % 0.6 % (0.0-2.0); EOSINOPHILS % 2.9 % (0.0-5.0); HEMATOCRIT. 43.9 % (42.0-52.0); HEMOGLOBIN. 14.5 g/dL (14.0-18.0); MEAN CORPUSCULAR HEMOGLOBIN 35.1 pg (28.0-32.0); MONOCYTES % 8.3 % (2.0-8.0); NEUTROPHILS % 62.2 % (40.0-76.0); PLATELET 309 x1000/uL (130-400); RED BLOOD CELL COUNT 4.15 mill/uL (4.7-6.1); RED CELL DISTRIBUTION WIDTH 15.1 % (11.6-14.6)
[2020-11-20 05:55] LABS: CHLORIDE 96 mEq/L (98-107)
[2020-11-20] MEDS ORDERED: SODIUM CHLORIDE 0.9% 500 ML IV ONE (06:00)
[2020-11-20] MEDS ORDERED: GLUCAGON,HUMAN RECOMBINANT 1MG/VIAL IV ONE (06:30)
[2020-11-20] MEDS ORDERED: CALCIUM CHLORIDE 1GM/10ML SYR IV SCH ×2 (06:30)
[2020-11-20] MEDS ORDERED: SODIUM BICARBONATE 8.4% 1 MEQ/ML 50ML SYR IV SCH ×2 (06:30)
[2020-11-20 14:58] LABS: HEPATITIS B SURFACE ANTIGEN NEGATIVE
[2020-11-20 14:59] VITALS: BP 131/77
[2020-11-20] MEDS ORDERED: TRAM50TA3 PO (15:20)
[2020-11-20 15:28] LABS: HEPATITIS A AB IGM NEGATIVE (NEGATIVE)
[2020-11-20] MEDS ORDERED: *PATIENT'S OWN MEDICATION STORAGE XX SCH (15:45)
[2020-11-20 15:58] VITALS: BP 131/77
[2020-11-20] MEDS ORDERED: CLONIDINE 0.1MG TABLET PO PRN (16:30)
[2020-11-20] MEDS ORDERED: IPRATROPIUM/ALBUTEROL 0.5-3(2.5)MG/3ML NEB HHN PRN (16:30)
[2020-11-20] MEDS ORDERED: ACETAMINOPHEN 325MG TABLET PO PRN (16:30)
[2020-11-20] MEDS ORDERED: ONDANSETRON HCL 4MG/2ML INJ IV PRN (16:30)
[2020-11-20] MEDS ORDERED: MAGNESIUM/ALUMINUM HYDROXIDE/SIMETHICONE 30ML UDC PO PRN (16:30)
[2020-11-20] MEDS ORDERED: DOCUSATE SODIUM 100MG CAPSULE PO PRN (17:00)
[2020-11-20] MEDS: LORAZEPAM 1MG TABLET PO SCH (17:40)
[2020-11-20 18:00] VITALS: BP 149/82
[2020-11-20] MEDS ORDERED: TRAMADOL 50MG TABLET PO PRN (18:24)
[2020-11-20 20:00] VITALS: BP 120/84
[2020-11-20] MEDS ORDERED: FAMOTIDINE 20MG TABLET PO SCH (21:00)
[2020-11-20 22:00] VITALS: BP 114/77
[2020-11-21] VITALS (7 sets, daily range): BP systolic 100–152; BP diastolic 61–99
[2020-11-21] MEDS: ENOXAPARIN 40MG/0.4ML SYR SUBCUT SCH ×2 (00:26→20:12)
[2020-11-21] MEDS: HYDROCODONE/ACETAMINOPHEN 5/325MG TABLET PO PRN ×3 (02:55→17:13)
[2020-11-21 07:20] LABS: EOSINOPHILS % 2.9 % (0.0-5.0); HEMATOCRIT. 40.4 % (42.0-52.0); HEMOGLOBIN. 13.4 g/dL (14.0-18.0); LYMPHOCYTES % 16.8 % (20.0-50.0); MEAN CORPUSCULAR VOLUME 105.6 fL (80.0-94.0); MEAN PLATELET VOLUME 8.1 fl (7.4-10.4); NEUTROPHILS % 66.3 % (40.0-76.0); PLATELET 301 x1000/uL (130-400); RED BLOOD CELL COUNT 3.83 mill/uL (4.7-6.1); RED CELL DISTRIBUTION WIDTH 15.3 % (11.6-14.6)
[2020-11-21] MEDS ORDERED: LIDOCAINE HCL 1% 20ML VIAL (Pyxis) INJ ONE (07:39)
[2020-11-21 07:48] LABS: PHOSPHORUS 4.2 mg/dL (2.5-4.9)
[2020-11-21 07:50] LABS: T4 FREE 0.86 ng/dL (0.76-1.46)
[2020-11-21] MEDS: SEVELAMER CARBONATE 800 MG TABLET PO SCH ×3 (08:13→17:19)
[2020-11-21] MEDS: FOLIC ACID/VITAMIN B COMP W-C TABLET PO SCH (08:14)
[2020-11-21] MEDS: LORAZEPAM 1MG TABLET PO SCH (08:14)
[2020-11-21] MEDS: OMEPRAZOLE 20MG CAPSULE EXTENDED RELEASE PO SCH (08:14)
[2020-11-21] MEDS ORDERED: DIPHENHYDRAMINE 50MG CAPSULE PO PRN (20:00)
[2020-11-21] MEDS: METOPROLOL TARTRATE 25MG TABLET PO SCH (20:12)
[2020-11-21] MEDS ORDERED: NALOXONE HCL 0.4MG/ML VIAL IV PRN (20:15)
[2020-11-22 07:03] LABS: HEMATOCRIT. 40.8 % (42.0-52.0); HEMOGLOBIN. 13.6 g/dL (14.0-18.0); MEAN PLATELET VOLUME 8.1 fl (7.4-10.4); PLATELET 279 x1000/uL (130-400); RED BLOOD CELL COUNT 3.88 mill/uL (4.7-6.1); RED CELL DISTRIBUTION WIDTH 15.2 % (11.6-14.6)
[2020-11-22 08:00] VITALS: BP 125/100
[2020-11-22] MEDS: SEVELAMER CARBONATE 800 MG TABLET PO SCH ×3 (08:00→17:59)
[2020-11-22] MEDS: METOPROLOL TARTRATE 25MG TABLET PO SCH (09:00)
[2020-11-22] MEDS: LORAZEPAM 1MG TABLET PO SCH (09:36)
[2020-11-22] MEDS: FOLIC ACID/VITAMIN B COMP W-C TABLET PO SCH (09:36)
[2020-11-22] MEDS: OMEPRAZOLE 20MG CAPSULE EXTENDED RELEASE PO SCH (09:37)
[2020-11-22] MEDS ORDERED: ENOXAPARIN 120MG/0.8ML SYR SUBCUT SCH (11:00)
[2020-11-22] MEDS ORDERED: METO-539 PO (11:07)
[2020-11-22 12:00] VITALS: BP 140/97
[2020-11-22 15:10] VITALS: BP 130/77
[2020-11-22 15:50] VITALS: BP 143/100
[2020-11-22 17:52] LABS: PLATELET ESTIMATE NORMAL
[2020-11-22] MEDS ORDERED: METOPROLOL TARTRATE 25MG TABLET PO SCH (21:00)
[2020-11-23] MEDS ORDERED: FAMOTIDINE 20MG TABLET PO SCH (09:00)
== END 2020-11-22 18:35 | disposition home or self-care (01) | DRG 871 ==
LOC: ER 03:57 → 5EST 06:34 → ENRESERV 08:40 → CANRESERV 09:23 → EDBEDREQSVC 10:06 → ENRESERV 12:36
PROVIDERS: ADMIT Internal Medicine; ATTEND Internal Medicine
PROC: 5A1D70Z Performance of Urinary Filtration, Intermittent, Less than 6 Hours Per Day (ICD-10-PCS; principal; 2020-11-20)
PROC: 5A1D70Z Performance of Urinary Filtration, Intermittent, Less than 6 Hours Per Day (ICD-10-PCS; 2020-11-22)
DX: A41.9 Sepsis, unspecified organism (principal); R57.0 Cardiogenic shock; N18.6 End stage renal disease; E44.0 Moderate protein-calorie malnutrition; E87.1 Hypo-osmolality and hyponatremia; I13.2 Hypertensive heart and chronic kidney disease with heart failure and with stage 5 chronic kidney disease, or end stage renal disease; I48.20 Chronic atrial fibrillation, unspecified; N25.81 Secondary hyperparathyroidism of renal origin; E87.2 Acidosis; D64.9 Anemia, unspecified; E11.22 Type 2 diabetes mellitus with diabetic chronic kidney disease; E66.01 Morbid (severe) obesity due to excess calories; E87.5 Hyperkalemia; I35.0 Nonrheumatic aortic (valve) stenosis; I50.9 Heart failure, unspecified; K57.90 Diverticulosis of intestine, part unspecified, without perforation or abscess without bleeding; T44.7X5A Adverse effect of beta-adrenoreceptor antagonists, initial encounter; Z20.822 Contact with and (suspected) exposure to COVID-19; K74.60 Unspecified cirrhosis of liver; R00.1 Bradycardia, unspecified; I27.20 Pulmonary hypertension, unspecified; Z90.81 Acquired absence of spleen; Z99.2 Dependence on renal dialysis; Z82.49 Family history of ischemic heart disease and other diseases of the circulatory system; Z83.3 Family history of diabetes mellitus; Y92.89 Other specified places as the place of occurrence of the external cause; Z79.899 Other long term (current) drug therapy; Z68.38 Body mass index [BMI] 38.0-38.9, adult
CPT/HCPCS: 36415; 71045; 80048; 80053; 80061; 80076; 83605; 83735; 84100; 84145; 84439; 84443; 84484; 85025; 86705; 86709; 86803; 86850; 86900; 87340; 87426; 93005; 93306; 93970; 97166; 99291; J1610; J1650; J3490; J7040; Q0163

== ENCOUNTER 2022-01-10 11:15 | Inpatient (IN) | payer MEDICARE, MEDICAID ==
[~2022-01-10] VITALS: Ht 175.3 cm; Wt 118.4 kg
[~2022-01-10 11:15] MED LIST changes: -DILT30TA38 PO; +TRAM50TA3 PO
[2022-01-10 12:31] LABS: BASOPHILS % 1.1 % (0.0-2.0); EOSINOPHILS % 2.5 % (0.0-5.0); HEMOGLOBIN. 13.8 g/dL (14.0-18.0); LYMPHOCYTES % 25.7 % (20.0-50.0); MEAN CORPUSCULAR HEMOGLOBIN 33.6 pg (28.0-32.0); MEAN CORPUSCULAR VOLUME 106.9 fL (80.0-94.0); MEAN PLATELET VOLUME 9.1 fl (7.4-10.4); MONOCYTES % 11.1 % (2.0-8.0); NEUTROPHILS % 59.6 % (40.0-76.0); PLATELET 229 x1000/uL (130-400); RED BLOOD CELL COUNT 4.11 mill/uL (4.7-6.1); RED CELL DISTRIBUTION WIDTH 16.4 % (11.6-14.6)
[2022-01-10 12:37] LABS: CHLORIDE 100 mEq/L (98-107)
[2022-01-10] MEDS ORDERED: ONDANSETRON HCL 4MG/2ML INJ IV PRN (16:30)
[2022-01-10] MEDS ORDERED: ACETAMINOPHEN 325MG TABLET PO PRN (16:30)
[2022-01-10 16:45] VITALS: BP 102/65
[2022-01-10 18:00] VITALS: BP 102/65
[2022-01-10 20:00] VITALS: BP 97/70
[2022-01-10] MEDS: METOPROLOL TARTRATE 25MG TABLET PO SCH (21:00)
[2022-01-10] MEDS: GUAIFENESIN 600MG ER TABLET PO SCH (21:28)
[2022-01-10] MEDS: MIDODRINE HCL 5MG TABLET PO SCH (22:19)
[2022-01-11] VITALS: BP 109/74
[2022-01-11 04:00] VITALS: BP 96/72
[2022-01-11] MEDS: MIDODRINE HCL 5MG TABLET PO SCH ×3 (06:00→21:43)
[2022-01-11 08:00] VITALS: BP 115/70
[2022-01-11] MEDS: METOPROLOL TARTRATE 25MG TABLET PO SCH ×2 (09:00→21:41)
[2022-01-11] MEDS: GUAIFENESIN 600MG ER TABLET PO SCH ×2 (09:57→21:40)
[2022-01-11] MEDS: SEVELAMER CARBONATE 800 MG TABLET PO SCH (09:57)
[2022-01-11] MEDS ORDERED: DEXTROSE 50% WATER 50ML SYRINGE IV PRN (11:00)
[2022-01-11 12:00] VITALS: BP 126/64
[2022-01-11] MEDS: BLOOD SUGAR DIAGNOSTIC STRIP TEST SCH ×3 (12:20→21:00)
[2022-01-11] MEDS: INSULIN LISPRO 100 UNITS/ML SUBCUT SCH ×3 (12:50→21:00)
[2022-01-11 16:00] VITALS: BP 118/73
[2022-01-11 17:41] LABS: BASOPHILS % 0.9 % (0.0-2.0); EOSINOPHILS % 2.9 % (0.0-5.0); HEMATOCRIT. 44.3 % (42.0-52.0); HEMOGLOBIN. 13.4 g/dL (14.0-18.0); LYMPHOCYTES % 21.5 % (20.0-50.0); MEAN CORPUSCULAR HEMOGLOBIN 33.5 pg (28.0-32.0); MEAN CORPUSCULAR VOLUME 110.7 fL (80.0-94.0); MEAN PLATELET VOLUME 9.9 fl (7.4-10.4); MONOCYTES % 11.7 % (2.0-8.0); PLATELET 192 x1000/uL (130-400); RED CELL DISTRIBUTION WIDTH 17.3 % (11.6-14.6)
[2022-01-11 17:47] LABS: HEPATITIS B SURFACE ANTIGEN NEGATIVE
[2022-01-11 20:00] VITALS: BP 111/68
[2022-01-11 21:25] LABS: PLATELET ESTIMATE NORMAL
[2022-01-12] VITALS: BP 110/72
[2022-01-12 04:00] VITALS: BP 118/68
[2022-01-12] MEDS: MIDODRINE HCL 5MG TABLET PO SCH ×3 (05:22→05:48)
[2022-01-12] MEDS: BLOOD SUGAR DIAGNOSTIC STRIP TEST SCH ×2 (05:22→12:20)
[2022-01-12] MEDS: INSULIN LISPRO 100 UNITS/ML SUBCUT SCH ×2 (07:50→12:50)
[2022-01-12 08:00] VITALS: BP 119/72
[2022-01-12] MEDS: METOPROLOL TARTRATE 25MG TABLET PO SCH (09:00)
[2022-01-12] MEDS: GUAIFENESIN 600MG ER TABLET PO SCH (09:13)
[2022-01-12] MEDS: SEVELAMER CARBONATE 800 MG TABLET PO SCH (09:19)
[2022-01-12 12:00] VITALS: BP 121/76
== END 2022-01-12 16:18 | disposition left against medical advice (07) | DRG 640 ==
LOC: ER 11:15 → 6WST 13:48 → EDBEDREQTM 13:53 → EDBEDREQ 13:53 → ENRESERV 14:15
PROVIDERS: ADMIT Internal Medicine; ATTEND Internal Medicine
PROC: 5A1D70Z Performance of Urinary Filtration, Intermittent, Less than 6 Hours Per Day (ICD-10-PCS; principal; 2022-01-11)
DX: E87.5 Hyperkalemia (principal); E43 Unspecified severe protein-calorie malnutrition; J96.00 Acute respiratory failure, unspecified whether with hypoxia or hypercapnia; N18.6 End stage renal disease; I13.2 Hypertensive heart and chronic kidney disease with heart failure and with stage 5 chronic kidney disease, or end stage renal disease; J98.11 Atelectasis; D68.59 Other primary thrombophilia; N25.81 Secondary hyperparathyroidism of renal origin; I27.20 Pulmonary hypertension, unspecified; I48.91 Unspecified atrial fibrillation; I35.0 Nonrheumatic aortic (valve) stenosis; K74.60 Unspecified cirrhosis of liver; K57.90 Diverticulosis of intestine, part unspecified, without perforation or abscess without bleeding; D63.1 Anemia in chronic kidney disease; E66.01 Morbid (severe) obesity due to excess calories; E11.22 Type 2 diabetes mellitus with diabetic chronic kidney disease; I50.9 Heart failure, unspecified; Z91.15 Patient's noncompliance with renal dialysis; Z82.49 Family history of ischemic heart disease and other diseases of the circulatory system; Z99.2 Dependence on renal dialysis; Z68.38 Body mass index [BMI] 38.0-38.9, adult; Z90.81 Acquired absence of spleen; Z53.29 Procedure and treatment not carried out because of patient's decision for other reasons
CPT/HCPCS: 36415; 71045; 80048; 80053; 82962; 83036; 83880; 84484; 85025; 86705; 86709; 86803; 87340; 93005; 97162; 99285

== ENCOUNTER 2022-03-01 14:56 | Inpatient (IN) | payer MEDICARE, MEDICAID ==
[~2022-03-01] VITALS: Ht 159 cm; Wt 112.5 kg
[2022-03-01 17:11] LABS: BASOPHILS % 1.2 % (0.0-2.0); EOSINOPHILS % 1.8 % (0.0-5.0); HEMATOCRIT. 42.3 % (42.0-52.0); HEMOGLOBIN. 13.6 g/dL (14.0-18.0); LYMPHOCYTES % 24.1 % (20.0-50.0); MEAN CORPUSCULAR HEMOGLOBIN 34.7 pg (28.0-32.0); MEAN CORPUSCULAR VOLUME 107.8 fL (80.0-94.0); MEAN PLATELET VOLUME 9.3 fl (7.4-10.4); MONOCYTES % 12.8 % (2.0-8.0); NEUTROPHILS % 60.1 % (40.0-76.0); PLATELET 158 x1000/uL (130-400); RED BLOOD CELL COUNT 3.92 mill/uL (4.7-6.1); RED CELL DISTRIBUTION WIDTH 17.6 % (11.6-14.6)
[2022-03-01 17:13] LABS: CHLORIDE 98 mEq/L (98-107)
[2022-03-01] MEDS ORDERED: FUROSEMIDE 20MG/2ML VIAL IVP ONE (22:00)
[2022-03-02] VITALS (60 sets, daily range): BP systolic 87–184; BP diastolic 54–126
[2022-03-02 08:23] LABS: BG BASE EXCESS -9.7 mmol/L (-2.0-2.0); BG CARBOXYHEMOGLOBIN 1.1 % (0.5-1.5); BG DEOXYHEMOGLOBIN 3.5 % (0.0-5.0); BG HCO3 ACT 21.8 mmol/L (22.0-26.0); BG METHEMOGLOBIN 0.1 % (0.0-1.5); BG OXYGEN SATURATION 96.5 % (92.0-98.5); BG OXYHEMOGLOBIN 95.3 % (94.0-97.0); BG PCO2 76.3 mmHg (35.0-45.0); BG PH 7.074 (7.350-7.450); BG PO2 101.2 mmHg (75.0-100.0); BG SAMPLE SITE RIGHT RADIAL; BG TOTAL HEMOGLOBIN 14.3 g/dL (12.0-18.0); BG VENT MODE MASK - SIMPLE
[2022-03-02] MEDS ORDERED: NOREPINEPHRINE 32 MG in DEXT 5% WATER 218 ML IV PRN (09:00)
[2022-03-02] MEDS ORDERED: IPRATROPIUM/ALBUTEROL 0.5-3(2.5)MG/3ML NEB HHN PRN (09:00)
[2022-03-02] MEDS ORDERED: MIDAZOLAM HCL 100 MG in SODIUM CHLORIDE 0.9% 80 ML IV PRN (09:15)
[2022-03-02] MEDS ORDERED: FENTANYL CITRATE/PF 2,500 MCG in SODIUM CHLORIDE 0.9% 200 ML IV PRN (09:15)
[2022-03-02 10:47] LABS: BG BASE EXCESS -8.2 mmol/L (-2.0-2.0); BG CARBOXYHEMOGLOBIN 1.2 % (0.5-1.5); BG DEOXYHEMOGLOBIN 0.3 % (0.0-5.0); BG HCO3 ACT 20.1 mmol/L (22.0-26.0); BG METHEMOGLOBIN 0.4 % (0.0-1.5); BG OXYGEN SATURATION 99.7 % (92.0-98.5); BG OXYHEMOGLOBIN 98.1 % (94.0-97.0); BG PH 7.205 (7.350-7.450); BG PO2 344.5 mmHg (75.0-100.0); BG SAMPLE SITE RIGHT RADIAL; BG TOTAL HEMOGLOBIN 14.4 g/dL (12.0-18.0); BG VENT MODE VENT - AC
[2022-03-02] MEDS: MIDODRINE HCL 5MG TABLET PO SCH ×2 (13:36→16:41)
[2022-03-02] MEDS: PANTOPRAZOLE SODIUM 40 MG/VIAL IV SCH (13:36)
[2022-03-02 13:38] LABS: PROTHROMBIN TIME 11.1 sec (9.6-11.0)
[2022-03-02] MEDS: IPRATROPIUM/ALBUTEROL 0.5-3(2.5)MG/3ML NEB HHN SCH ×2 (14:50→20:28)
[2022-03-02] MEDS: PIPERACILLIN/TAZOBACTAM 3.375 G in DEXTROSE 5% WATER 50 ML IV SCH (15:20)
[2022-03-02 15:37] LABS: BG CARBOXYHEMOGLOBIN 1.4 % (0.5-1.5); BG DEOXYHEMOGLOBIN 4.5 % (0.0-5.0); BG HCO3 ACT 16.9 mmol/L (22.0-26.0); BG METHEMOGLOBIN 0.2 % (0.0-1.5); BG OXYGEN SATURATION 95.4 % (92.0-98.5); BG OXYHEMOGLOBIN 93.9 % (94.0-97.0); BG PCO2 40.7 mmHg (35.0-45.0); BG PH 7.236 (7.350-7.450); BG PO2 79.9 mmHg (75.0-100.0); BG SAMPLE SITE RIGHT RADIAL; BG TOTAL HEMOGLOBIN 13.9 g/dL (12.0-18.0); BG VENT MODE VENT - AC
[2022-03-02] MEDS ORDERED: SODIUM BICARBONATE 8.4% 1 MEQ/ML 50ML SYR IV NR (16:30)
[2022-03-02] MEDS: ENOXAPARIN 120MG/0.8ML SYR SUBCUT SCH (16:40)
[2022-03-03] VITALS (80 sets, daily range): BP systolic 78–123; BP diastolic 42–73
[2022-03-03] MEDS: IPRATROPIUM/ALBUTEROL 0.5-3(2.5)MG/3ML NEB HHN SCH ×4 (02:12→20:33)
[2022-03-03] MEDS: PIPERACILLIN/TAZOBACTAM 3.375 G in DEXTROSE 5% WATER 50 ML IV SCH ×2 (02:36→13:31)
[2022-03-03 05:19] LABS: CHLORIDE 99 mEq/L (98-107)
[2022-03-03 05:26] LABS: PHOSPHORUS 6.3 mg/dL (2.5-4.9)
[2022-03-03 08:09] LABS: BG BASE EXCESS -3.7 mmol/L (-2.0-2.0); BG CARBOXYHEMOGLOBIN 0.2 % (0.5-1.5); BG HCO3 ACT 21.2 mmol/L (22.0-26.0); BG METHEMOGLOBIN 0.1 % (0.0-1.5); BG OXYHEMOGLOBIN 95.7 % (94.0-97.0); BG PCO2 37.9 mmHg (35.0-45.0); BG PH 7.365 (7.350-7.450); BG PO2 81.8 mmHg (75.0-100.0); BG SAMPLE SITE RIGHT RADIAL; BG TOTAL HEMOGLOBIN 12.3 g/dL (12.0-18.0); BG VENT MODE VENT - AC
[2022-03-03] MEDS: PANTOPRAZOLE SODIUM 40 MG/VIAL IV SCH (10:27)
[2022-03-03] MEDS: MIDODRINE HCL 5MG TABLET PO SCH ×3 (10:28→17:16)
[2022-03-03] MEDS ORDERED: BISACODYL 5MG TABLET PO PRN (11:00)
[2022-03-03 11:43] LABS: BASOPHILS % 0.9 % (0.0-2.0); HEMATOCRIT. 35.6 % (42.0-52.0); LYMPHOCYTES % 14.1 % (20.0-50.0); MEAN CORPUSCULAR HEMOGLOBIN 35.6 pg (28.0-32.0); MEAN PLATELET VOLUME 9.1 fl (7.4-10.4); MONOCYTES % 13.1 % (2.0-8.0); NEUTROPHILS % 70.9 % (40.0-76.0); PLATELET 159 x1000/uL (130-400); RED BLOOD CELL COUNT 3.36 mill/uL (4.7-6.1); RED CELL DISTRIBUTION WIDTH 16.9 % (11.6-14.6)
[2022-03-03] MEDS: ENOXAPARIN 120MG/0.8ML SYR SUBCUT SCH (14:47)
[2022-03-03 15:04] LABS: HEPATITIS B SURFACE ANTIGEN NEGATIVE
[2022-03-03] MEDS: DILTIAZEM HCL 5MG/ML 5ML VIAL IV PRN (22:39)
[2022-03-04] VITALS (65 sets, daily range): BP systolic 83–149; BP diastolic 25–100
[2022-03-04] MEDS: IPRATROPIUM/ALBUTEROL 0.5-3(2.5)MG/3ML NEB HHN SCH ×4 (02:16→20:29)
[2022-03-04] MEDS: PIPERACILLIN/TAZOBACTAM 3.375 G in DEXTROSE 5% WATER 50 ML IV SCH ×2 (02:52→14:12)
[2022-03-04 06:28] LABS: EOSINOPHILS % 1.7 % (0.0-5.0); HEMATOCRIT. 37.4 % (42.0-52.0); HEMOGLOBIN. 12.3 g/dL (14.0-18.0); LYMPHOCYTES % 19.1 % (20.0-50.0); MEAN CORPUSCULAR HEMOGLOBIN 34.8 pg (28.0-32.0); MEAN CORPUSCULAR VOLUME 105.6 fL (80.0-94.0); MEAN PLATELET VOLUME 8.9 fl (7.4-10.4); MONOCYTES % 13.4 % (2.0-8.0); NEUTROPHILS % 64.8 % (40.0-76.0); PLATELET 155 x1000/uL (130-400); RED BLOOD CELL COUNT 3.54 mill/uL (4.7-6.1); RED CELL DISTRIBUTION WIDTH 17.1 % (11.6-14.6)
[2022-03-04 08:56] LABS: BG DEOXYHEMOGLOBIN 4.6 % (0.0-5.0); BG FRACTION INSPIRED OXYGEN 40; BG HCO3 ACT 25.8 mmol/L (22.0-26.0); BG METHEMOGLOBIN 0.2 % (0.0-1.5); BG OXYGEN SATURATION 95.3 % (92.0-98.5); BG OXYHEMOGLOBIN 94.2 % (94.0-97.0); BG PCO2 42.2 mmHg (35.0-45.0); BG PH 7.405 (7.350-7.450); BG PO2 75.7 mmHg (75.0-100.0); BG SAMPLE SITE RIGHT BRACHIAL; BG TOTAL HEMOGLOBIN 14.2 g/dL (12.0-18.0); BG VENT MODE VENT - AC
[2022-03-04] MEDS: MIDODRINE HCL 5MG TABLET PO SCH ×3 (09:43→17:26)
[2022-03-04] MEDS: PANTOPRAZOLE SODIUM 40 MG/VIAL IV SCH (09:43)
[2022-03-04] MEDS: DILTIAZEM HCL 5MG/ML 5ML VIAL IV PRN (11:24)
[2022-03-04 13:39] LABS: PHOSPHORUS 4.6 mg/dL (2.5-4.9)
[2022-03-04] MEDS: ENOXAPARIN 120MG/0.8ML SYR SUBCUT SCH (14:12)
[2022-03-04 14:20] LABS: BG BASE EXCESS -0.8 mmol/L (-2.0-2.0); BG CARBOXYHEMOGLOBIN 0.7 % (0.5-1.5); BG DEOXYHEMOGLOBIN 4.1 % (0.0-5.0); BG FRACTION INSPIRED OXYGEN 40; BG HCO3 ACT 24.5 mmol/L (22.0-26.0); BG METHEMOGLOBIN 0.2 % (0.0-1.5); BG OXYGEN SATURATION 95.9 % (92.0-98.5); BG PCO2 42.8 mmHg (35.0-45.0); BG PH 7.375 (7.350-7.450); BG PO2 84.2 mmHg (75.0-100.0); BG SAMPLE SITE RIGHT BRACHIAL; BG TOTAL HEMOGLOBIN 12.7 g/dL (12.0-18.0); BG VENT MODE VENT - CPAP
[2022-03-04] MEDS ORDERED: PHENOL/SODIUM PHENOLATE 1.4% SRPAY 177ML MM ONE (15:45)
[2022-03-05] VITALS (86 sets, daily range): BP systolic 63–158; BP diastolic 24–125
[2022-03-05] MEDS: PIPERACILLIN/TAZOBACTAM 3.375 G in DEXTROSE 5% WATER 50 ML IV SCH ×2 (01:27→14:30)
[2022-03-05] MEDS: IPRATROPIUM/ALBUTEROL 0.5-3(2.5)MG/3ML NEB HHN SCH ×4 (01:41→20:14)
[2022-03-05 06:21] LABS: BASOPHILS % 0.8 % (0.0-2.0); HEMATOCRIT. 36.4 % (42.0-52.0); HEMOGLOBIN. 12.2 g/dL (14.0-18.0); LYMPHOCYTES % 18.4 % (20.0-50.0); MEAN CORPUSCULAR HEMOGLOBIN 35.6 pg (28.0-32.0); MEAN CORPUSCULAR VOLUME 106.7 fL (80.0-94.0); MEAN PLATELET VOLUME 9.1 fl (7.4-10.4); MONOCYTES % 11.5 % (2.0-8.0); NEUTROPHILS % 67.3 % (40.0-76.0); PLATELET 162 x1000/uL (130-400); RED BLOOD CELL COUNT 3.41 mill/uL (4.7-6.1); RED CELL DISTRIBUTION WIDTH 17.1 % (11.6-14.6)
[2022-03-05 07:49] LABS: BG BASE EXCESS -0.9 mmol/L (-2.0-2.0); BG DEOXYHEMOGLOBIN 5.8 % (0.0-5.0); BG HCO3 ACT 26.2 mmol/L (22.0-26.0); BG METHEMOGLOBIN 0.2 % (0.0-1.5); BG OXYGEN SATURATION 94.1 % (92.0-98.5); BG PCO2 53.5 mmHg (35.0-45.0); BG PH 7.308 (7.350-7.450); BG PO2 72.6 mmHg (75.0-100.0); BG SAMPLE SITE RIGHT BRACHIAL; BG TOTAL HEMOGLOBIN 14.2 g/dL (12.0-18.0); BG VENT MODE NASAL CANNULA
[2022-03-05 07:53] LABS: PHOSPHORUS 4.2 mg/dL (2.5-4.9)
[2022-03-05] MEDS: PANTOPRAZOLE SODIUM 40 MG/VIAL IV SCH (08:51)
[2022-03-05] MEDS: MIDODRINE HCL 5MG TABLET PO SCH ×3 (08:52→17:24)
[2022-03-05] MEDS: ENOXAPARIN 120MG/0.8ML SYR SUBCUT SCH (14:28)
[2022-03-05] MEDS: DILTIAZEM HCL 5MG/ML 5ML VIAL IV PRN (15:28)
[2022-03-05] MEDS: AMIODARONE HCL 200 MG TABLET PO SCH (17:24)
[2022-03-06] VITALS (91 sets, daily range): BP systolic 68–150; BP diastolic 24–137
[2022-03-06] MEDS: PIPERACILLIN/TAZOBACTAM 3.375 G in DEXTROSE 5% WATER 50 ML IV SCH ×2 (01:06→14:39)
[2022-03-06] MEDS: AMIODARONE HCL 200 MG TABLET PO SCH ×2 (06:03→17:00)
[2022-03-06 06:06] LABS: BASOPHILS % 0.8 % (0.0-2.0); EOSINOPHILS % 1.4 % (0.0-5.0); HEMATOCRIT. 39.9 % (42.0-52.0); LYMPHOCYTES % 9.6 % (20.0-50.0); MEAN CORPUSCULAR HEMOGLOBIN 35.1 pg (28.0-32.0); MEAN CORPUSCULAR VOLUME 107.4 fL (80.0-94.0); MEAN PLATELET VOLUME 8.9 fl (7.4-10.4); MONOCYTES % 11.9 % (2.0-8.0); NEUTROPHILS % 76.3 % (40.0-76.0); PLATELET 182 x1000/uL (130-400); RED BLOOD CELL COUNT 3.72 mill/uL (4.7-6.1); RED CELL DISTRIBUTION WIDTH 16.7 % (11.6-14.6)
[2022-03-06 06:33] LABS: PHOSPHORUS 7.1 mg/dL (2.5-4.9)
[2022-03-06 07:56] LABS: BG BASE EXCESS -2.1 mmol/L (-2.0-2.0); BG CARBOXYHEMOGLOBIN 0.5 % (0.5-1.5); BG DEOXYHEMOGLOBIN 14.8 % (0.0-5.0); BG FRACTION INSPIRED OXYGEN 21; BG HCO3 ACT 26.1 mmol/L (22.0-26.0); BG METHEMOGLOBIN 0.9 % (0.0-1.5); BG OXYHEMOGLOBIN 83.8 % (94.0-97.0); BG PH 7.263 (7.350-7.450); BG PO2 49.5 mmHg (75.0-100.0); BG SAMPLE SITE RIGHT BRACHIAL; BG TOTAL HEMOGLOBIN 14.5 g/dL (12.0-18.0); BG VENT MODE ROOM AIR
[2022-03-06] MEDS ORDERED: LORAZEPAM 2MG/ML CPJ IV NR (08:15)
[2022-03-06] MEDS: PANTOPRAZOLE SODIUM 40 MG/VIAL IV SCH (08:25)
[2022-03-06] MEDS: MIDODRINE HCL 5MG TABLET PO SCH ×3 (08:25→17:00)
[2022-03-06] MEDS: IPRATROPIUM/ALBUTEROL 0.5-3(2.5)MG/3ML NEB HHN SCH ×3 (08:49→20:11)
[2022-03-06 10:17] LABS: BG BASE EXCESS -1.4 mmol/L (-2.0-2.0); BG CARBOXYHEMOGLOBIN 1.3 % (0.5-1.5); BG DEOXYHEMOGLOBIN 2.6 % (0.0-5.0); BG FRACTION INSPIRED OXYGEN 50; BG HCO3 ACT 27.5 mmol/L (22.0-26.0); BG METHEMOGLOBIN 0.4 % (0.0-1.5); BG OXYGEN SATURATION 97.4 % (92.0-98.5); BG OXYHEMOGLOBIN 95.7 % (94.0-97.0); BG PCO2 65.4 mmHg (35.0-45.0); BG PH 7.241 (7.350-7.450); BG SAMPLE SITE RIGHT RADIAL; BG TOTAL HEMOGLOBIN 13.9 g/dL (12.0-18.0); BG VENT MODE MASK - BIPAP
[2022-03-06] MEDS: ENOXAPARIN 120MG/0.8ML SYR SUBCUT SCH (14:40)
[2022-03-06] MEDS ORDERED: HYDROCODONE/ACETAMINOPHEN 5/325MG TABLET PO PRN (15:00)
[2022-03-06] MEDS ORDERED: NALOXONE HCL 0.4MG/ML VIAL IV PRN (15:15)
[2022-03-06 16:38] LABS: BG BASE EXCESS 2.4 mmol/L (-2.0-2.0); BG DEOXYHEMOGLOBIN 3.3 % (0.0-5.0); BG FRACTION INSPIRED OXYGEN 50; BG HCO3 ACT 30.4 mmol/L (22.0-26.0); BG METHEMOGLOBIN 0.4 % (0.0-1.5); BG OXYGEN SATURATION 96.7 % (92.0-98.5); BG OXYHEMOGLOBIN 95.3 % (94.0-97.0); BG PCO2 62.5 mmHg (35.0-45.0); BG PH 7.305 (7.350-7.450); BG SAMPLE SITE RIGHT RADIAL; BG TOTAL RESPIRATORY RATE 25 b/min; BG VENT MODE MASK - BIPAP
[2022-03-07] VITALS (45 sets, daily range): BP systolic 84–208; BP diastolic 40–113
[2022-03-07] MEDS: IPRATROPIUM/ALBUTEROL 0.5-3(2.5)MG/3ML NEB HHN SCH ×2 (02:08→08:54)
[2022-03-07] MEDS: PIPERACILLIN/TAZOBACTAM 3.375 G in DEXTROSE 5% WATER 50 ML IV SCH ×2 (03:02→13:43)
[2022-03-07 04:38] LABS: BASOPHILS % 0.4 % (0.0-2.0); EOSINOPHILS % 1.6 % (0.0-5.0); HEMATOCRIT. 38.7 % (42.0-52.0); HEMOGLOBIN. 12.6 g/dL (14.0-18.0); LYMPHOCYTES % 17.2 % (20.0-50.0); MEAN CORPUSCULAR HEMOGLOBIN 34.9 pg (28.0-32.0); MEAN PLATELET VOLUME 8.8 fl (7.4-10.4); NEUTROPHILS % 70.8 % (40.0-76.0); PLATELET 178 x1000/uL (130-400); RED BLOOD CELL COUNT 3.62 mill/uL (4.7-6.1); RED CELL DISTRIBUTION WIDTH 17.4 % (11.6-14.6)
[2022-03-07 04:54] LABS: CHLORIDE 101 mEq/L (98-107)
[2022-03-07 05:05] LABS: PHOSPHORUS 5.1 mg/dL (2.5-4.9)
[2022-03-07] MEDS: AMIODARONE HCL 200 MG TABLET PO SCH ×2 (06:28→18:52)
[2022-03-07] MEDS ORDERED: ACETAMINOPHEN 650MG/20.3ML UDC PO PRN (09:15)
[2022-03-07 09:19] LABS: BG BASE EXCESS 2.5 mmol/L (-2.0-2.0); BG CARBOXYHEMOGLOBIN 0.3 % (0.5-1.5); BG DEOXYHEMOGLOBIN 3.1 % (0.0-5.0); BG FRACTION INSPIRED OXYGEN 50; BG HCO3 ACT 28.8 mmol/L (22.0-26.0); BG METHEMOGLOBIN 0.3 % (0.0-1.5); BG OXYGEN SATURATION 96.9 % (92.0-98.5); BG OXYHEMOGLOBIN 96.3 % (94.0-97.0); BG PCO2 51.7 mmHg (35.0-45.0); BG PH 7.364 (7.350-7.450); BG PO2 86.9 mmHg (75.0-100.0); BG SAMPLE SITE RIGHT BRACHIAL; BG TOTAL HEMOGLOBIN 13.2 g/dL (12.0-18.0); BG TOTAL RESPIRATORY RATE 26 b/min; BG VENT MODE MASK - BIPAP
[2022-03-07] MEDS: MIDODRINE HCL 5MG TABLET PO SCH ×3 (09:27→18:53)
[2022-03-07] MEDS: PANTOPRAZOLE SODIUM 40 MG/VIAL IV SCH (09:27)
[2022-03-07] MEDS: DILTIAZEM HCL 5MG/ML 5ML VIAL IV PRN ×2 (11:55→23:02)
[2022-03-07] MEDS ORDERED: ACETAMINOPHEN 325MG TABLET PO PRN (13:15)
[2022-03-07] MEDS: ENOXAPARIN 120MG/0.8ML SYR SUBCUT SCH (13:47)
[2022-03-07] MEDS: DIPHENHYDRAMINE 25MG CAPSULE PO PRN ×2 (13:57→23:03)
[2022-03-07] MEDS: LORAZEPAM 0.5MG TABLET PO PRN (23:03)
[2022-03-08] VITALS (24 sets, daily range): BP systolic 86–115; BP diastolic 56–78
[2022-03-08 05:56] LABS: BASOPHILS % 0.5 % (0.0-2.0); EOSINOPHILS % 2.1 % (0.0-5.0); HEMATOCRIT. 39.7 % (42.0-52.0); HEMOGLOBIN. 13.2 g/dL (14.0-18.0); LYMPHOCYTES % 12.4 % (20.0-50.0); MEAN CORPUSCULAR HEMOGLOBIN 35.3 pg (28.0-32.0); MEAN CORPUSCULAR VOLUME 106.4 fL (80.0-94.0); MEAN PLATELET VOLUME 8.6 fl (7.4-10.4); MONOCYTES % 10.9 % (2.0-8.0); NEUTROPHILS % 74.1 % (40.0-76.0); PLATELET 195 x1000/uL (130-400); RED BLOOD CELL COUNT 3.73 mill/uL (4.7-6.1); RED CELL DISTRIBUTION WIDTH 17.6 % (11.6-14.6)
[2022-03-08 07:38] LABS: PHOSPHORUS 6.1 mg/dL (2.5-4.9)
[2022-03-08] MEDS: AMIODARONE HCL 200 MG TABLET PO SCH ×2 (08:46→17:39)
[2022-03-08] MEDS: MIDODRINE HCL 5MG TABLET PO SCH ×3 (08:48→17:40)
[2022-03-08] MEDS: PANTOPRAZOLE SODIUM 40 MG/VIAL IV SCH (08:48)
[2022-03-08] MEDS: ENOXAPARIN 120MG/0.8ML SYR SUBCUT SCH (13:32)
[2022-03-08] MEDS: DIPHENHYDRAMINE 25MG CAPSULE PO PRN (16:20)
[2022-03-08] MEDS: LORAZEPAM 0.5MG TABLET PO PRN (22:53)
[2022-03-09] VITALS (12 sets, daily range): BP systolic 100–209; BP diastolic 55–95
[2022-03-09] MEDS: DILTIAZEM HCL 5MG/ML 5ML VIAL IV PRN (02:04)
[2022-03-09] MEDS ORDERED: DILTIAZEM HCL 5MG/ML 5ML VIAL IV PRN ×2 (06:15→14:15)
[2022-03-09] MEDS: MIDODRINE HCL 5MG TABLET PO SCH (09:00)
[2022-03-09 09:11] LABS: BASOPHILS % 0.7 % (0.0-2.0); EOSINOPHILS % 0.3 % (0.0-5.0); HEMATOCRIT. 41.1 % (42.0-52.0); HEMOGLOBIN. 13.5 g/dL (14.0-18.0); LYMPHOCYTES % 12.9 % (20.0-50.0); MEAN CORPUSCULAR HEMOGLOBIN 35.1 pg (28.0-32.0); MEAN CORPUSCULAR VOLUME 107.2 fL (80.0-94.0); MEAN PLATELET VOLUME 8.9 fl (7.4-10.4); MONOCYTES % 9.8 % (2.0-8.0); NEUTROPHILS % 76.3 % (40.0-76.0); PLATELET 221 x1000/uL (130-400); RED BLOOD CELL COUNT 3.84 mill/uL (4.7-6.1); RED CELL DISTRIBUTION WIDTH 17.1 % (11.6-14.6)
[2022-03-09] MEDS: PANTOPRAZOLE SODIUM 40 MG/VIAL IV SCH (09:20)
[2022-03-09] MEDS: AMIODARONE HCL 200 MG TABLET PO SCH ×2 (09:21→18:51)
[2022-03-09] MEDS: DILTIAZEM HCL 60MG TABLET PO SCH ×2 (12:39→22:00)
[2022-03-09] MEDS: ENOXAPARIN 120MG/0.8ML SYR SUBCUT SCH (16:12)
[2022-03-10] VITALS (12 sets, daily range): BP systolic 81–136; BP diastolic 44–90
[2022-03-10] MEDS: DILTIAZEM HCL 60MG TABLET PO SCH (06:00)
[2022-03-10] MEDS: PANTOPRAZOLE SODIUM 40 MG/VIAL IV SCH (08:52)
[2022-03-10] MEDS: AMIODARONE HCL 200 MG TABLET PO SCH ×2 (08:52→17:26)
[2022-03-10] MEDS: DILTIAZEM HCL 30MG TABLET PO SCH ×2 (15:00→21:00)
[2022-03-10] MEDS: ENOXAPARIN 120MG/0.8ML SYR SUBCUT SCH (16:13)
[2022-03-10] MEDS ORDERED: LACTULOSE 20G/30ML UDC PO PRN (21:00)
[2022-03-11] VITALS (17 sets, daily range): BP systolic 91–137; BP diastolic 44–84
[2022-03-11] MEDS: DILTIAZEM HCL 30MG TABLET PO SCH ×4 (03:00→21:59)
[2022-03-11] MEDS: AMIODARONE HCL 200 MG TABLET PO SCH ×3 (08:00→17:06)
[2022-03-11] MEDS: DOCUSATE SODIUM 250MG CAPSULE PO SCH (08:49)
[2022-03-11] MEDS: PANTOPRAZOLE SODIUM 40 MG/VIAL IV SCH (08:49)
[2022-03-11] MEDS: ENOXAPARIN 120MG/0.8ML SYR SUBCUT SCH (17:06)
[2022-03-12] VITALS (13 sets, daily range): BP systolic 104–143; BP diastolic 52–82
[2022-03-12] MEDS: DILTIAZEM HCL 30MG TABLET PO SCH ×2 (03:37→08:53)
[2022-03-12] MEDS: AMIODARONE HCL 200 MG TABLET PO SCH ×2 (08:00→18:00)
[2022-03-12] MEDS: PANTOPRAZOLE SODIUM 40 MG/VIAL IV SCH (08:53)
[2022-03-12] MEDS: DOCUSATE SODIUM 250MG CAPSULE PO SCH (08:53)
[2022-03-12 11:28] LABS: BG BASE EXCESS -0.1 mmol/L (-2.0-2.0); BG CARBOXYHEMOGLOBIN 0.4 % (0.5-1.5); BG DEOXYHEMOGLOBIN 13.7 % (0.0-5.0); BG FRACTION INSPIRED OXYGEN 24; BG METHEMOGLOBIN 0.2 % (0.0-1.5); BG OXYGEN SATURATION 86.2 % (92.0-98.5); BG OXYHEMOGLOBIN 85.7 % (94.0-97.0); BG PCO2 54.2 mmHg (35.0-45.0); BG PH 7.316 (7.350-7.450); BG PO2 52.9 mmHg (75.0-100.0); BG SAMPLE SITE RIGHT RADIAL; BG TOTAL HEMOGLOBIN 14.3 g/dL (12.0-18.0); BG VENT MODE NASAL CANNULA
[2022-03-12 13:08] LABS: BASOPHILS % 0.8 % (0.0-2.0); EOSINOPHILS % 0.5 % (0.0-5.0); HEMATOCRIT. 40.8 % (42.0-52.0); HEMOGLOBIN. 13.4 g/dL (14.0-18.0); MEAN CORPUSCULAR HEMOGLOBIN 35.4 pg (28.0-32.0); MEAN CORPUSCULAR VOLUME 107.4 fL (80.0-94.0); MEAN PLATELET VOLUME 8.6 fl (7.4-10.4); MONOCYTES % 11.5 % (2.0-8.0); NEUTROPHILS % 63.2 % (40.0-76.0); PLATELET 269 x1000/uL (130-400); RED CELL DISTRIBUTION WIDTH 17.1 % (11.6-14.6)
[2022-03-12] MEDS ORDERED: DILTIAZEM HCL 30MG TABLET PO SCH (14:00)
[2022-03-12] MEDS: ENOXAPARIN 120MG/0.8ML SYR SUBCUT SCH (15:22)
[2022-03-12] MEDS: DILTIAZEM HCL 60MG TABLET PO SCH ×2 (15:22→21:55)
[2022-03-13] VITALS (18 sets, daily range): BP systolic 87–129; BP diastolic 45–81
[2022-03-13] MEDS: DILTIAZEM HCL 60MG TABLET PO SCH (05:17)
[2022-03-13] MEDS: DIPHENHYDRAMINE 25MG CAPSULE PO PRN (05:44)
[2022-03-13 06:58] LABS: EOSINOPHILS % 2.8 % (0.0-5.0); HEMATOCRIT. 41.4 % (42.0-52.0); HEMOGLOBIN. 13.5 g/dL (14.0-18.0); LYMPHOCYTES % 25.7 % (20.0-50.0); MEAN CORPUSCULAR HEMOGLOBIN 35.4 pg (28.0-32.0); MEAN PLATELET VOLUME 8.5 fl (7.4-10.4); MONOCYTES % 9.4 % (2.0-8.0); NEUTROPHILS % 61.1 % (40.0-76.0); PLATELET 269 x1000/uL (130-400); RED BLOOD CELL COUNT 3.83 mill/uL (4.7-6.1); RED CELL DISTRIBUTION WIDTH 17.4 % (11.6-14.6)
[2022-03-13 07:42] LABS: PHOSPHORUS 6.6 mg/dL (2.5-4.9)
[2022-03-13] MEDS: PANTOPRAZOLE SODIUM 40 MG/VIAL IV SCH (08:16)
[2022-03-13] MEDS: DOCUSATE SODIUM 250MG CAPSULE PO SCH (08:16)
[2022-03-13] MEDS: AMIODARONE HCL 200 MG TABLET PO SCH ×2 (08:16→17:15)
[2022-03-13] MEDS ORDERED: AMI2 PO (09:00)
[2022-03-13] MEDS ORDERED: DILT60TA35 PO (09:00)
[2022-03-13] MEDS: SEVELAMER CARBONATE 800 MG TABLET PO SCH ×2 (12:56→17:15)
[2022-03-13] MEDS ORDERED: DILTIAZEM HCL 30MG TABLET PO SCH (14:00)
[2022-03-13] MEDS: ENOXAPARIN 120MG/0.8ML SYR SUBCUT SCH (17:16)
== END 2022-03-13 23:55 | DRG 208 ==
LOC: ER 14:56 → 6WST 03-02 00:34 → EDBEDREQ 03-02 00:35 → EDBEDREQTM 03-02 00:35 → ENRESERV 03-02 01:17 → 6WST 03-02 02:51 → MICUSO 03-02 09:20 → 5EST 03-07 16:30
PROVIDERS: ADMIT Internal Medicine; ATTEND Internal Medicine
PROC: 5A1945Z Respiratory Ventilation, 24-96 Consecutive Hours (ICD-10-PCS; principal; 2022-03-02)
PROC: 0BH17EZ Insertion of Endotracheal Airway into Trachea, Via Natural or Artificial Opening (ICD-10-PCS; 2022-03-02)
PROC: 05HY33Z Insertion of Infusion Device into Upper Vein, Percutaneous Approach (ICD-10-PCS; 2022-03-02)
PROC: 5A1D70Z Performance of Urinary Filtration, Intermittent, Less than 6 Hours Per Day (ICD-10-PCS; 2022-03-03)
PROC: 5A09357 Assistance with Respiratory Ventilation, Less than 24 Consecutive Hours, Continuous Positive Airway Pressure (ICD-10-PCS; 2022-03-04)
PROC: 5A1D70Z Performance of Urinary Filtration, Intermittent, Less than 6 Hours Per Day (ICD-10-PCS; 2022-03-04)
PROC: 5A09357 Assistance with Respiratory Ventilation, Less than 24 Consecutive Hours, Continuous Positive Airway Pressure (ICD-10-PCS; 2022-03-06)
PROC: 5A1D70Z Performance of Urinary Filtration, Intermittent, Less than 6 Hours Per Day (ICD-10-PCS; 2022-03-06)
PROC: 5A09357 Assistance with Respiratory Ventilation, Less than 24 Consecutive Hours, Continuous Positive Airway Pressure (ICD-10-PCS; 2022-03-08)
PROC: 5A1D70Z Performance of Urinary Filtration, Intermittent, Less than 6 Hours Per Day (ICD-10-PCS; 2022-03-08)
PROC: 5A09357 Assistance with Respiratory Ventilation, Less than 24 Consecutive Hours, Continuous Positive Airway Pressure (ICD-10-PCS; 2022-03-11)
PROC: 5A1D70Z Performance of Urinary Filtration, Intermittent, Less than 6 Hours Per Day (ICD-10-PCS; 2022-03-11)
PROC: 5A09357 Assistance with Respiratory Ventilation, Less than 24 Consecutive Hours, Continuous Positive Airway Pressure (ICD-10-PCS; 2022-03-12)
PROC: 5A1D70Z Performance of Urinary Filtration, Intermittent, Less than 6 Hours Per Day (ICD-10-PCS; 2022-03-13)
DX: J96.02 Acute respiratory failure with hypercapnia (principal); J15.6 Pneumonia due to other Gram-negative bacteria; G93.41 Metabolic encephalopathy; N18.6 End stage renal disease; I50.23 Acute on chronic systolic (congestive) heart failure; E87.29 Other acidosis; I13.2 Hypertensive heart and chronic kidney disease with heart failure and with stage 5 chronic kidney disease, or end stage renal disease; E66.2 Morbid (severe) obesity with alveolar hypoventilation; E87.1 Hypo-osmolality and hyponatremia; N25.81 Secondary hyperparathyroidism of renal origin; Z68.41 Body mass index [BMI] 40.0-44.9, adult; I42.0 Dilated cardiomyopathy; J96.01 Acute respiratory failure with hypoxia; E11.22 Type 2 diabetes mellitus with diabetic chronic kidney disease; K74.60 Unspecified cirrhosis of liver; I95.89 Other hypotension; E87.5 Hyperkalemia; Z20.822 Contact with and (suspected) exposure to COVID-19; I48.91 Unspecified atrial fibrillation; D63.1 Anemia in chronic kidney disease; I27.20 Pulmonary hypertension, unspecified; K57.90 Diverticulosis of intestine, part unspecified, without perforation or abscess without bleeding; D69.6 Thrombocytopenia, unspecified; Z99.2 Dependence on renal dialysis; Z91.15 Patient's noncompliance with renal dialysis; Z79.899 Other long term (current) drug therapy; Z79.84 Long term (current) use of oral hypoglycemic drugs; Z90.81 Acquired absence of spleen; Z82.49 Family history of ischemic heart disease and other diseases of the circulatory system; Z83.3 Family history of diabetes mellitus
CPT/HCPCS: 31500; 36415; 36573; 36600; 71045; 78580; 80048; 80053; 82140; 82375; 82805; 82962; 83735; 83880; 84100; 84484; 85025; 85379; 86705; 86709; 86803; 87070; 87077; 87186; 87340; 87426; 90935; 92610; 93005; 93306; 93970; 94002; 94003; 94640; 94660; 97162; 97166; 99285; C1725; C1893; C9113; J1650; J2060; J2543; J3010; J3490; J7050; J7060; Q0163